=== PATIENT | female | born 1940 | race Caucasian/White ===

== ENCOUNTER 2016-09-13 14:05 | Inpatient (IN) | payer OTHER, MEDICARE ==
[~2016-09-13] VITALS: Ht 157.5 cm; Wt 73.4 kg
[~2016-09-13 14:05] MED LIST: APIX2.5T PO; ATOR40TA PO; BACT2OIN EACH NARE; CALC600T44 PO; CART180C4 PO; CO Q100C7 PO; EPIP0.3I IM; HYDR-2768 PO; HYDR50TA15 PO; LISI40TA PO; OXYB5TAB PO; POLY255S PO; PROT40TA PO; STOO100T PO; ULTR50TA PO; Z.0.CPM; Z.0.WALKERFRONT
[2016-09-13 14:20] VITALS: BP 134/73; PULSE 92; RESP 16; TEMP 99.7; O2SAT 96
[2016-09-13] MEDS ORDERED: PANT40TA3 PO (14:35)
[2016-09-13] MEDS ORDERED: NEXI20CA PO (14:35)
[2016-09-13] MEDS ORDERED: ASPI325T PO (14:35)
[2016-09-13] MEDS ORDERED: HYDR25TA5 PO (14:35)
[2016-09-13] MEDS ORDERED: HYDR-3801 PO (14:35)
[2016-09-13] MEDS ORDERED: DILT1TAB4 PO (14:35)
[2016-09-13] MEDS ORDERED: CALC1TAB30 PO (14:35)
[2016-09-13] MEDS ORDERED: ATOR40TA16 PO (14:35)
[2016-09-13] MEDS ORDERED: COQ-100C2 PO (14:35)
[2016-09-13] MEDS ORDERED: OXYB5TAB10 PO (14:35)
[2016-09-13] MEDS ORDERED: LISI40TA PO (14:35)
[2016-09-13] MEDS ORDERED: STOO100C PO (14:35)
[2016-09-13] MEDS ORDERED: SODIUM CHLOR 0.9% 1000 ML INJ 1,000 ML IV SCH ×2 (14:42→16:45)
[2016-09-13] MEDS ORDERED: ONDANSETRON HCL 4 MG/2 ML VIAL IVP ONE (14:45)
[2016-09-13] MEDS ORDERED: SODIUM CHLORIDE 0.9% FLUSH 5 ML FLUSH IVF PRN (14:45)
[2016-09-13 15:15] LABS: AUTOMATED NEUTROPHIL # 10.2 TH/MM3 (1.8-7.7); BASOPHIL # 0.1 TH/MM3 (0-0.2); EOSINOPHIL % 0.1 % (0.0-4.0); HEMATOCRIT 36.3 % (35.0-46.0); HEMO FLAGS DIFF FINAL; LYMPH % 7.8 % (9.0-44.0); LYMPHOCYTE # 0.9 TH/MM3 (1.0-4.8); MEAN CELL VOLUME 83.5 FL (80.0-100.0); MEAN CORPUSCULAR HEMOGLOBIN 28.5 PG (27.0-34.0); MEAN CORPUSCULAR HGB CONC 34.2 % (32.0-36.0); NEUT % 85.1 % (16.0-70.0); PLATELET COUNT 219 TH/MM3 (150-450); RED BLOOD COUNT 4.35 MIL/MM3 (4.00-5.30); RED CELL DISTRIBUTION WIDTH 13.8 % (11.6-17.2); WHITE BLOOD COUNT 11.9 TH/MM3 (4.0-11.0)
--- NOTE | 2016-09-13 15:23 | PD ---
HPI Chief Complaint: GI Complaint Time Seen by Provider: 14:33 Travel History International Travel<30 days: No Contact w/Intl Traveler<30days: No Traveled to known affect area: No History of Present Illness HPI This is a 76-year-old female who presents to the emergency department with left lower quadrant abdominal pain that started last evening associated with multiple copious episodes of diarrhea with blood mixed in this morning, and vomiting. She reports associated chills. She says her symptoms have been severe and she had an episode of fecal incontinence last evening which is not like her. She denies any recent travel or any recent antibiotic use. She does say that something similar happened this to her about 3 years ago. She did have a colonoscopy at that time which was unrevealing. She denies any sick contacts. PFSH Past Medical History Arthritis: Yes Asthma: No Autoimmune Disease: No Anxiety: No Depression: No Heart Rhythm Problems: Yes (Bradycardia) Cancer: No Cardiomyopathy: Yes (BRADYCARDIA) Cardiovascular Problems: Yes (PACEMAKER, DUAL BIOMETRICS (BIOTRONIC?)) High Cholesterol: Yes Chemotherapy: No Chest Pain: No Congestive Heart Failure: No COPD: No Cerebrovascular Accident: No Diabetes: No Diminished Hearing: No Endocrine: No Gastrointestinal Disorders: Yes (GIB) GERD: Yes Genitourinary: No Hepatitis: No Hiatal Hernia: No Hypertension: Yes Immune Disorder: No Kidney Stones: No Musculoskeletal: Yes Neurologic: No Psychiatric: No Reproductive: No Respiratory: No Migraines: No Radiation Therapy: No Seizures: No Sickle Cell Disease: No Sleep Apnea: No Thyroid Disease: No Ulcer: Yes Tetanus Vaccination: Unknown Influenza Vaccination: Yes ?: Not Menopausal: Yes Past Surgical History Abdominal Surgery: No AICD: No Appendectomy: Yes Body Medical Devices: BL hips and knees, pacemaker Cardiac Surgery: Yes (Pacemaker) Ear Surgery: No Endocrine Surgery: No Eye Surgery: No Genitourinary Surgery: No Gynecologic Surgery: Yes (TUMOR ON FALLOPIAN TUBE, BENIGN 1966; HYSTER A& P REPAIR) Hysterectomy: Yes Insulin Pump: No Joint Replacement: Yes (BL hips and knees) Oral Surgery: No Pacemaker: Yes (Biometric) Thoracic Surgery: No Social History Alcohol Use: Yes (Rarely) Tobacco Use: No Substance Use: No Allergies-Medications (Allergen,Severity, Reaction): Coded Allergies: Bee Sting (Verified Allergy, Severe, Lip/facial swelling, 09/13/16) Codeine (Verified Allergy, Severe, Rash, N/V, 09/13/16) Penicillin (Verified Allergy, Severe, Rash, 09/13/16) Percocet (Verified Allergy, Severe, N/V, 09/13/16) Sulfa (Verified Allergy, Severe, Swelling, 09/13/16) Vicodin (Unverified Allergy, Unknown, N/V, 09/13/16) Reported Meds & Prescriptions Reported Meds & Active Scripts Active Reported Stool Softener (Docusate Sodium) 100 Mg Cap 1 Cap PO HS Calcium 600 + D (Calcium Carbonate-Cholecalciferol) 600-200 Mg-Unit Tab 1 Tab PO DAILY Coq-10 (Coenzyme Q10 (Ubidecarenone)) 100 Mg Cap 1 Cap PO DAILY Nexium (Esomeprazole DR) 20 Mg Capdr 20 Mg PO DAILY Aspirin 325 Mg Tab 325 Mg PO DAILY Pantoprazole (Pantoprazole Sodium) 40 Mg Tab 40 Mg PO DAILY Atorvastatin (Atorvastatin Calcium) 40 Mg Tab 40 Mg PO HS Hydralazine (Hydralazine HCl) 100 Mg Tab 100 Mg PO TID Take with meals Lisinopril 40 Mg Tab 40 Mg PO BID Ditropan (Oxybutynin Chloride) 5 Mg Tab 5 Mg PO Q12HR Diltiazem ER 24 HR 240 Mg Yahaira 240 Mg PO DAILY Hydrochlorothiazide 25 Mg Tab 25 Mg PO DAILY Review of Systems Except as stated in HPI: all other systems reviewed are Neg Physical Exam Narrative GENERAL: Uncomfortable appearing, no acute distress SKIN: Dry with skin tenting HEAD: Atraumatic. Normocephalic. EYES: Pupils equal and round. No injection or drainage. ENT: Moist mucous membranes NECK: Trachea midline. CARDIOVASCULAR: Regular rate and rhythm. No murmur appreciated. RESPIRATORY: Clear to auscultation. Breath sounds equal bilaterally. GASTROINTESTINAL: Abdomen soft, tender to palpation in the left upper and left lower quadrants with no rebound or guarding. MUSCULOSKELETAL: No obvious deformities. NEUROLOGICAL: Awake and alert. No obvious cranial nerve deficits. Moving all extremities. PSYCHIATRIC: Appropriate mood and affect; insight and judgment normal. Data Data Last Documented VS Vital Signs Date Time Temp Pulse Resp B/P Pulse Ox O2 Delivery O2 Flow Rate FiO2 09/13/16 15:25 81 18 109/48 98 Room Air 09/13/16 14:20 99.7 Orders Complete Blood Count With Diff (09/13/16 14:42) Comprehensive Metabolic Panel (09/13/16 14:42) Lipase (09/13/16 14:42) Lactic Acid (09/13/16 14:42) Urinalysis - C+S If Indicated (09/13/16 14:42) Ct Abd/Pel W Iv Contrast(Rout) (09/13/16 14:42) Iv Access Insert/Monitor (09/13/16 14:42) Ecg Monitoring (09/13/16 14:42) Oximetry (09/13/16 14:42) Ondansetron Inj (Zofran Inj) (09/13/16 14:45) Sodium Chlor 0.9% 1000 Ml Inj (Ns 1000 M (09/13/16 14:42) Sodium Chloride 0.9% Flush (Ns Flush) (09/13/16 14:45) Labs Laboratory Tests Test 09/13/16 15:05 White Blood Count 11.9 TH/MM3 Red Blood Count 4.35 MIL/MM3 Hemoglobin 12.4 GM/DL Hematocrit 36.3 % Mean Corpuscular Volume 83.5 FL Mean Corpuscular Hemoglobin 28.5 PG Mean Corpuscular Hemoglobin 34.2 % Concent Red Cell Distribution Width 13.8 % Platelet Count 219 TH/MM3 Mean Platelet Volume 7.4 FL Neutrophils (%) (Auto) 85.1 % Lymphocytes (%) (Auto) 7.8 % Monocytes (%) (Auto) 6.0 % Eosinophils (%) (Auto) 0.1 % Basophils (%) (Auto) 1.0 % Neutrophils # (Auto) 10.2 TH/MM3 Lymphocytes # (Auto) 0.9 TH/MM3 Monocytes # (Auto) 0.7 TH/MM3 Eosinophils # (Auto) 0.0 TH/MM3 Basophils # (Auto) 0.1 TH/MM3 CBC Comment DIFF FINAL Differential Comment MDM Medical Decision Making Medical Screen Exam Complete: Yes Emergency Medical Condition: Yes Interpretation(s) Leukocytosis 85% neutrophils Differential Diagnosis Diverticulitis, colitis, gastroenteritis, appendicitis Narrative Course This is a 76-year-old female who presents to the emergency department with left lower quadrant abdominal pain, bloody diarrhea and vomiting. She is quite tender in the left abdomen. Plan for labs, IV fluids, pain control and antiemetics and CT imaging to rule out diverticulitis. I suspect the patient has a colitis. Patient should be reassessed for disposition Samira Gonzalez MD Sep 13, 2016 15:23
[2016-09-13 15:25] VITALS: BP 109/48; PULSE 81; RESP 18; O2SAT 98
[2016-09-13 15:27] LABS: CHLORIDE 108 MEQ/L (98-107); POTASSIUM 4.5 MEQ/L (3.5-5.1); SODIUM (NA) 141 MEQ/L (136-145)
[2016-09-13 15:32] LABS: ANION GAP 8 MEQ/L (5-15); BLOOD UREA NITROGEN 33 MG/DL (7-18)
[2016-09-13 15:35] LABS: ALT (GPT) 20 U/L (10-53); AST (GOT) 20 U/L (15-37); GLOMERULAR FILTRATION RATE 37 ML/MIN (>89)
[2016-09-13 15:36] LABS: TOTAL BILIRUBIN ADULT 0.8 MG/DL (0.2-1.0)
[2016-09-13 15:38] LABS: ALKALINE PHOSPHATASE 115 U/L (45-117)
[2016-09-13] MEDS ORDERED: IODIXANOL 320 MG/ML 10 ML VIAL (for Rad CT) IV ONE (15:53)
--- NOTE | 2016-09-13 16:10 | RADHPO ---
EXAM DATE/TIME: 09/13/2016 15:47 [facility] COMPARISON: CT ABDOMEN & PELVIS W CONTRAST, July 04, 2013, 7:41. INDICATIONS : Left lower abdomen pain since last night with nausea, vomiting and diarrhea. IV CONTRAST: 47 cc Visipaque (iodixanol) IV ORAL CONTRAST: No oral contrast ingested. RADIATION DOSE: 10.05 CTDIvol (mGy) MEDICAL HISTORY : Hypertension. renal disease SURGICAL HISTORY : Pacemaker. Hysterectomy.Angioplasty. ENCOUNTER: Initial ACUITY: 1 day PAIN SCALE: 5/10 LOCATION: Left lower quadrant TECHNIQUE: Volumetric scanning of the abdomen and pelvis was performed. Using automated exposure control and ad justment of the mA and/or kV according to patient size, radiation dose was kept as low as reasonably achievable to obtain optimal diagnostic quality images. FINDINGS: There is a large hiatal hernia. Liver, gallbladder, spleen, pancreas, bilateral adrenal glands, bilat eral kidneys are normal in appearance there is atherosclerotic calcifications of the aorta and iliac vessels are noted. Small fat containing umbilical hernia. Urinary bladder is partially obscured by ar tifact from bilateral hip arthroplasties but visualized portions are within normal limits. There is d iverticulosis of the sigmoid colon. There is a small amount of free fluid in the pelvis. There is mar ked circumferential bowel wall thickening involving the distal sigmoid colon through the distal trans verse colon with adjacent pericolonic inflammatory stranding and trace pericolonic fluid. This is dana racteristic of a colitis. The celiac, superior mesenteric and inferior mesenteric arteries are patent . Lung bases are clear. Degenerative changes of the spine are noted. CONCLUSION: 1. Abnormal appearance of the large bowel from the distal transverse colon to the distal sigmoid colo n as described above. A small amount of a coming free fluid is seen. This is characteristic of coliti s. 2. Small fat-containing umbilical hernia and hiatal hernias are noted. Jason Betts MD on September 13, 2016 at 16:06 Board Certified Radiologist. This report was verified electronically.
--- NOTE | 2016-09-13 16:26 | PD ---
Physical Exam Narrative Patient was seen by ED physician and signed out to me. Data Data Last Documented VS Vital Signs Date Time Temp Pulse Resp B/P Pulse Ox O2 Delivery O2 Flow Rate FiO2 09/13/16 16:45 85 18 109/48 97 Room Air 09/13/16 14:20 99.7 Orders Complete Blood Count With Diff (09/13/16 14:42) Comprehensive Metabolic Panel (09/13/16 14:42) Lipase (09/13/16 14:42) Lactic Acid (09/13/16 14:42) Urinalysis - C+S If Indicated (09/13/16 14:42) Ct Abd/Pel W Iv Contrast(Rout) (09/13/16 14:42) Iv Access Insert/Monitor (09/13/16 14:42) Ecg Monitoring (09/13/16 14:42) Oximetry (09/13/16 14:42) Ondansetron Inj (Zofran Inj) (09/13/16 14:45) Sodium Chlor 0.9% 1000 Ml Inj (Ns 1000 M (09/13/16 14:42) Sodium Chloride 0.9% Flush (Ns Flush) (09/13/16 14:45) Iodixanol 320 Inj (Rad Ct) (Visipaque 32 (09/13/16 15:53) Hydromorphone Pf Inj (Dilaudid Pf Inj) (09/13/16 16:45) Sodium Chlor 0.9% 1000 Ml Inj (Ns 1000 M (09/13/16 16:45) Pantoprazole Inj (Protonix Inj) (09/13/16 16:45) Levofloxacin 500 Mg Premix Inj (Levaquin (09/13/16 16:45) Admit Order (Ed Use Only) (09/13/16 16:35) Metronidazole 500 Mg Inj (Flagyl 500 Mg (09/13/16 18:00) Ciprofloxacin 200 Mg Premix (Cipro 200 M (09/14/16 05:00) Admit To Inpatient (09/13/16 ) Vital Signs (Adult) Q4H (09/13/16 16:33) Activity Oob Ad Hazel (09/13/16 16:33) Intake + Output ROSA M.QSHIFT (09/13/16 16:33) Diet Heart Healthy (09/13/16 Dinner) Sodium Chlor 0.9% 1000 Ml Inj (Ns 1000 M (09/13/16 16:33) Sodium Chloride 0.9% Flush (Ns Flush) (09/13/16 16:45) Sodium Chloride 0.9% Flush (Ns Flush) (09/13/16 21:00) Acetaminophen (Tylenol) (09/13/16 16:45) Basic Metabolic Panel (Bmp) (09/14/16 06:00) Complete Blood Count With Diff (09/14/16 06:00) Pt Request For Service (09/13/16 16:33) Scd Bilateral/Knee High ROSA M.BID (09/13/16 16:33) Naloxone Inj (Narcan Inj) (09/13/16 16:45) Inpatient Certification (09/13/16 ) C Diff Toxin Pcr (09/13/16 16:33) Ondansetron Inj (Zofran Inj) (09/13/16 16:45) Atorvastatin (Lipitor) (09/13/16 21:00) Pantoprazole (Protonix) (09/14/16 09:00) Consult Gastroenterology (09/13/16 ) Labs Laboratory Tests Test 09/13/16 15:05 White Blood Count 11.9 TH/MM3 Red Blood Count 4.35 MIL/MM3 Hemoglobin 12.4 GM/DL Hematocrit 36.3 % Mean Corpuscular Volume 83.5 FL Mean Corpuscular Hemoglobin 28.5 PG Mean Corpuscular Hemoglobin 34.2 % Concent Red Cell Distribution Width 13.8 % Platelet Count 219 TH/MM3 Mean Platelet Volume 7.4 FL Neutrophils (%) (Auto) 85.1 % Lymphocytes (%) (Auto) 7.8 % Monocytes (%) (Auto) 6.0 % Eosinophils (%) (Auto) 0.1 % Basophils (%) (Auto) 1.0 % Neutrophils # (Auto) 10.2 TH/MM3 Lymphocytes # (Auto) 0.9 TH/MM3 Monocytes # (Auto) 0.7 TH/MM3 Eosinophils # (Auto) 0.0 TH/MM3 Basophils # (Auto) 0.1 TH/MM3 CBC Comment DIFF FINAL Differential Comment Sodium Level 141 MEQ/L Potassium Level 4.5 MEQ/L Chloride Level 108 MEQ/L Carbon Dioxide Level 25.0 MEQ/L Anion Gap 8 MEQ/L Blood Urea Nitrogen 33 MG/DL Creatinine 1.40 MG/DL Estimat Glomerular Filtration 37 ML/MIN Rate Random Glucose 106 MG/DL Lactic Acid Level 0.9 mmol/L Calcium Level 8.7 MG/DL Total Bilirubin 0.8 MG/DL Aspartate Amino Transf 20 U/L (AST/SGOT) Alanine Aminotransferase 20 U/L (ALT/SGPT) Alkaline Phosphatase 115 U/L Total Protein 6.4 GM/DL Albumin 3.1 GM/DL Lipase 86 U/L [facility] Supervised Visit with KEI: No Interpretation(s) Last Impressions Abdomen/Pelvis CT 09/13/16 1442 Signed Impressions: Service Date/Time: Tuesday, September 13, 2016 15:47 - CONCLUSION: 1. Abnormal appearance of the large bowel from the distal transverse colon to the distal sigmoid colon as described above. A small amount of a coming free fluid is seen. This is characteristic of colitis. 2. Small fat-containing umbilical hernia and hiatal hernias are noted. Jason Betts MD 1623 PM. CBC WBC 11.9. 85 neutrophil. CMP with BUN 33. Creatinine 1.4. Lactic acid 0.9. Narrative Course Patient was given IV fluid, normal saline solution, Protonix 40 mg IV, Dilaudid 0.5 mg IV, Zofran 4 mg IV, Levaquin 500 milligrams IV. Spoke with Dr. Romero. Patient will be admitted with GI consultation. Patient's house furnishings supervisor is Dr. Magana. Spoke with shayne Rivas or [place]. Diagnosis Primary Impression: Colitis Additional Impression: Acute kidney injury Mehran Gilbert MD Sep 13, 2016 16:26
[2016-09-13 16:45] VITALS: BP 109/48; PULSE 85; RESP 18; O2SAT 97
[2016-09-13] MEDS ORDERED: SODIUM CHLORIDE 0.9% FLUSH 5 ML FLUSH FLUSH PRN (16:45)
[2016-09-13] MEDS ORDERED: NALOXONE HCL 0.4 MG/ML AMP IV PRN (16:45)
[2016-09-13] MEDS ORDERED: LEVOFLOXACIN 500 MG PREMIX INJ 100 ML IV ONE (16:45)
[2016-09-13] MEDS ORDERED: ACETAMINOPHEN 325 MG TAB PO PRN (16:45)
[2016-09-13] MEDS ORDERED: PANTOPRAZOLE SODIUM 40 MG VIAL IV PUSH ONE (16:45)
[2016-09-13] MEDS ORDERED: HYDROmorphone HCL PF 1 MG/ML VIAL IV PUSH ONE (16:45)
[2016-09-13] MEDS: SODIUM CHLOR 0.9% 1000 ML INJ 1,000 ML IV SCH (16:46)
[2016-09-13 18:00] VITALS: BP 121/58; PULSE 81; RESP 20; TEMP 98.2; O2SAT 95
[2016-09-13] MEDS: metroNIDAZOLE 500 MG INJ 100 ML IV SCH (20:05)
[2016-09-13] MEDS: SODIUM CHLORIDE 0.9% FLUSH 5 ML FLUSH FLUSH SCH (21:08)
[2016-09-13] MEDS: ATORVASTATIN 40 MG TAB PO SCH (21:08)
[2016-09-13 21:26] VITALS: BP 119/53; PULSE 78; RESP 18; TEMP 99.1; O2SAT 98
[2016-09-13 21:38] LABS: BLOOD, URINE NEG (NEG); GLUCOSE,URINE NEG (NEG); KETONE, URINE NEG (NEG); NITRITE,URINE NEG (NEG); PH, URINE 5.5 (5.0-8.5)
[2016-09-13 22:01] LABS: METHOD OF COLLECTION VOIDED; URINE COLOR YELLOW (YELLW/STRAW)
[2016-09-13 22:03] LABS: COMMENT (UR) CULT NOT INDICATED; CULTURE IF INDICATED CULT NOT INDICATED; SQUAMOUS EPITHELIAL CELL URINE 0-3 /hpf (0-5); TRANSITIONAL EPI CELLS, URINE 0-2 /hpf
[2016-09-13] MEDS: ONDANSETRON HCL 4 MG/2 ML VIAL IV PUSH PRN (23:12)
[2016-09-13] MEDS: HYDROmorphone HCL PF 1 MG/ML VIAL IV PUSH PRN (23:15)
[2016-09-14] VITALS (9 sets, daily range): BP systolic 96–134; BP diastolic 52–71; PULSE 63–88; RESP 15–20; TEMP 98–98.9; O2SAT 95–98
[2016-09-14] MEDS: metroNIDAZOLE 500 MG INJ 100 ML IV SCH ×3 (02:36→17:48)
[2016-09-14] MEDS: SODIUM CHLOR 0.9% 1000 ML INJ 1,000 ML IV SCH ×3 (02:37→23:02)
[2016-09-14] MEDS: ONDANSETRON HCL 4 MG/2 ML VIAL IV PUSH PRN ×3 (05:14→17:48)
[2016-09-14] MEDS: HYDROmorphone HCL PF 1 MG/ML VIAL IV PUSH PRN ×3 (05:15→17:48)
[2016-09-14] MEDS: CIPROFLOXACIN 200 MG PREMIX 100 ML IV SCH ×2 (05:15→17:48)
[2016-09-14 07:11] LABS: AUTOMATED NEUTROPHIL # 7.8 TH/MM3 (1.8-7.7); BASOPHIL % 0.1 % (0.0-2.0); EOSINOPHIL # 0.1 TH/MM3 (0-0.4); EOSINOPHIL % 0.9 % (0.0-4.0); LYMPH % 11.1 % (9.0-44.0); LYMPHOCYTE # 1.1 TH/MM3 (1.0-4.8); MEAN CELL VOLUME 86.3 FL (80.0-100.0); MEAN CORPUSCULAR HEMOGLOBIN 28.6 PG (27.0-34.0); MEAN CORPUSCULAR HGB CONC 33.1 % (32.0-36.0); MONO % 4.9 % (0.0-8.0); PLATELET COUNT 163 TH/MM3 (150-450); RED BLOOD COUNT 3.48 MIL/MM3 (4.00-5.30); RED CELL DISTRIBUTION WIDTH 14.6 % (11.6-17.2); WHITE BLOOD COUNT 9.5 TH/MM3 (4.0-11.0)
[2016-09-14 07:14] LABS: HEMO FLAGS AUTO DIFF
[2016-09-14 07:24] LABS: POTASSIUM 3.9 MEQ/L (3.5-5.1)
[2016-09-14 07:42] LABS: SCAN/DIFF AUTO DIFF CONFIRMED
[2016-09-14 07:44] LABS: BICARBONATE 24.9 MEQ/L (21.0-32.0)
[2016-09-14] MEDS: SODIUM CHLORIDE 0.9% FLUSH 5 ML FLUSH FLUSH SCH ×2 (09:00→21:30)
[2016-09-14] MEDS: PANTOPRAZOLE SOD 40 MG DELAYED RELEASE TAB PO SCH (09:08)
--- NOTE | 2016-09-14 10:08 | HHI.HP ---
[facility] Service [facility] Primary Care Physician Ariel Barrientos M.D. Admission Diagnosis colitis. Acute kidney injury. Diagnoses: (1) Colitis Diagnosis: Principal (2) Nausea & vomiting Diagnosis: Principal (3) Diarrhea in adult patient Diagnosis: Principal (4) Acute blood loss anemia Diagnosis: Principal (5) Acute kidney injury Diagnosis: Principal (6) Hypertension Diagnosis: Secondary Chief Complaint: Nausea, vomiting, diarrhea with bright red blood Travel History International Travel<30 Days: No Contact w/Intl Traveler <30 Da: No Traveled to Known Affected Are: No History of Present Illness 76-year-old female with known history of hypertension, bradycardia requiring pacemaker, gastroesophageal reflux, history of inflammatory bowel disease who presented to the hospital because acute onset nausea, vomiting, diarrhea with bright red blood per rectum. Patient states that she is in normal state of health until Thursday at approximately 6:30 PM when she started developing nausea and vomiting. Shortly after that she started having diarrhea at least 2 episodes prior to noticing bright red blood in her stool. Patient has significant abdominal pain, unable to tolerate any food, still with hematochezia so she came to the hospital for evaluation. Patient had laboratory studies done which did indicate some acute kidney injury. CT scan was done which have rather significant findings of marked circumferential bowel wall thickening involving the distal sigmoid colon to the distal transverse colon with adjacent pericolonic inflammatory stranding and trace pericolonic fluid. Those reasons is recommended by the ER physician that the patient be admitted the hospital for further evaluation management. Patient states that prior to her symptoms starting she had tomato juice for breakfast, salad for lunch. She noticed some swelling in her lower extremities whenever golfing that day. She denies any recent sick exposures or any recent antibiotic use. Dr. Magana is her material handler loader who performed upper and lower endoscopies approximately 3 years ago. She is scheduled to have upper endoscopy performed in the next 10 days. Review of Systems Constitutional: DENIES: Diaphoretic episodes, Fatigue, Fever, Weight gain, Weight loss, Chills, Dizziness, Change in appetite, Night Sweats Eyes: DENIES: Blurred vision, Diplopia, Eye inflammation, Eye pain, Vision loss , Double Vision Ears, nose, mouth, throat: DENIES: Vertigo, Nasal discharge, Throat pain, Ear Pain, Running Nose, Sinus Pain Respiratory: DENIES: Apneas, Cough, Snoring, Wheezing, Hemoptysis, Sputum production, Shortness of breath Cardiovascular: DENIES: Chest pain, Palpitations, Syncope, Dyspnea on Exertion , PND, Lower Extremity Edema, Orthopnea, Claudication Gastrointestinal: COMPLAINS OF: Abdominal pain, Bloody stools, Nausea, Vomiting , DENIES: Black stools, Constipation, Diarrhea, Difficulty Swallowing, Anorexia Neurologic: DENIES: Abnormal gait, Headache, Localized weakness, Paresthesias, Seizures, Speech Problems, Tremor, Poor Balance Past Family Social History Past Medical History Hypertension Bradycardia requiring pacemaker Inflammatory bowel disorder Past Surgical History Cataract surgery Tonsillectomy Appendectomy Bladder surgery Hysterectomy Bilateral knee replacements Left hip replacement 2 Right hip replacement Reported Medications Reported Meds & Active Scripts Active Reported Stool Softener (Docusate Sodium) 100 Mg Cap 1 Cap PO HS Calcium 600 + D (Calcium Carbonate-Cholecalciferol) 600-200 Mg-Unit Tab 1 Tab PO DAILY Coq-10 (Coenzyme Q10 (Ubidecarenone)) 100 Mg Cap 1 Cap PO DAILY Nexium (Esomeprazole DR) 20 Mg Capdr 20 Mg PO DAILY Aspirin 325 Mg Tab 325 Mg PO DAILY Pantoprazole (Pantoprazole Sodium) 40 Mg Tab 40 Mg PO DAILY Atorvastatin (Atorvastatin Calcium) 40 Mg Tab 40 Mg PO HS Hydralazine (Hydralazine HCl) 100 Mg Tab 100 Mg PO TID Take with meals Lisinopril 40 Mg Tab 40 Mg PO BID Ditropan (Oxybutynin Chloride) 5 Mg Tab 5 Mg PO Q12HR Diltiazem ER 24 HR 240 Mg Yahaira 240 Mg PO DAILY Hydrochlorothiazide 25 Mg Tab 25 Mg PO DAILY Allergies: Coded Allergies: Bee Sting (Verified Allergy, Severe, Lip/facial swelling, 09/13/16) Codeine (Verified Allergy, Severe, Rash, N/V, 09/13/16) Penicillin (Verified Allergy, Severe, Rash, 09/13/16) Percocet (Verified Allergy, Severe, N/V, 09/13/16) Sulfa (Verified Allergy, Severe, Swelling, 09/13/16) Vicodin (Unverified Allergy, Unknown, N/V, 09/13/16) Family History Reviewed is significant for father having heart disease and prostate cancer. Mother with breast cancer, brother with throat cancer Social History Patient denies any tobacco, illicit drug use. She does drink alcohol socially Physical Exam Vital Signs Vital Signs Date Time Temp Pulse Resp B/P Pulse Ox O2 Delivery O2 Flow Rate FiO2 09/14/16 09:21 98.2 70 16 120/65 97 09/14/16 04:00 98.0 63 18 96/57 98 09/14/16 02:32 80 09/14/16 00:27 98.9 74 16 104/52 95 09/13/16 21:26 99.1 78 18 119/53 98 09/13/16 18:00 98.2 81 20 121/58 95 09/13/16 17:15 16 09/13/16 16:45 85 18 109/48 97 Room Air 09/13/16 15:25 81 18 109/48 98 Room Air 09/13/16 15:25 98 Room Air 09/13/16 14:20 99.7 92 16 134/73 96 Physical Exam GENERAL: Well-developed, well-nourished, in no acute distress. alert and orientated HEENT: Head is normocephalic without any lesions or masses noted. Facial features are symmetric. Eyes: Pupils equal round reactive to light. Extraocular muscles are intact. Conjunctivae were clear. Oropharyngeal: Pharynx without any erythema edema. Tongue is midline without deviation. Buccal mucosa is moist without any masses or lesions NECK: Supple without any masses. Trachea midline no deviation. No JVD, no bruits are appreciated CARDIAC: Regular rhythm, regular rate. S1/S2 are heard. No murmurs gallops or rubs. LUNGS: Clear to auscultation bilaterally. No wheeze, rhonchi or rales. No use of accessory muscles on inspiration or expiration. ABDOMEN: Soft, diffuse abdominal pain noted. Nondistended. Bowel sounds heard in all 4 quadrants. No organomegaly or masses. Negative rebound, negative guarding EXTREMITIES: No edema, pulses are equal bilaterally. No cyanosis or clubbing NEUROLOGY: Mood and affect appear appropriate. Cranial nerves II through XII grossly intact. Muscle strength 5/5 in upper and lower extremities bilaterally. Deep tendon reflexes are 2+ in upper and lower extremities bilaterally. Laboratory Laboratory Tests Test 09/13/16 09/13/1617 15:05 21:15 06:45 White Blood Count 11.9 9.5 Red Blood Count 4.35 3.48 Hemoglobin 12.4 9.9 Hematocrit 36.3 30.0 Mean Corpuscular Volume 83.5 86.3 Mean Corpuscular Hemoglobin 28.5 28.6 Mean Corpuscular Hemoglobin 34.2 33.1 Concent Red Cell Distribution Width 13.8 14.6 Platelet Count 219 163 Mean Platelet Volume 7.4 7.4 Neutrophils (%) (Auto) 85.1 83.0 Lymphocytes (%) (Auto) 7.8 11.1 Monocytes (%) (Auto) 6.0 4.9 Eosinophils (%) (Auto) 0.1 0.9 Basophils (%) (Auto) 1.0 0.1 Neutrophils # (Auto) 10.2 7.8 Lymphocytes # (Auto) 0.9 1.1 Monocytes # (Auto) 0.7 0.5 Eosinophils # (Auto) 0.0 0.1 Basophils # (Auto) 0.1 0.0 CBC Comment DIFF FINAL AUTO DIFF Differential Comment AUTO DIFF CONFIRMED Sodium Level 141 143 Potassium Level 4.5 3.9 Chloride Level 108 110 Carbon Dioxide Level 25.0 24.9 Anion Gap 8 8 Blood Urea Nitrogen 33 22 Creatinine 1.40 0.97 Estimat Glomerular Filtration 37 56 Rate Random Glucose 106 93 Lactic Acid Level 0.9 Calcium Level 8.7 7.8 Total Bilirubin 0.8 Aspartate Amino Transf 20 (AST/SGOT) Alanine Aminotransferase 20 (ALT/SGPT) Alkaline Phosphatase 115 Total Protein 6.4 Albumin 3.1 Lipase 86 Urine Collection Type VOIDED Urine Color YELLOW Urine Turbidity CLEAR Urine pH 5.5 Urine Specific [place] 1.030 Urine Protein NEG Urine Glucose (UA) NEG Urine Ketones NEG Urine Occult Blood NEG Urine Nitrite NEG Urine Bilirubin NEG Urine Leukocyte Esterase TRACE Urine WBC 3-5 Urine Squamous Epithelial 0-3 Cells Urine Transitional Epithelial 0-2 Cells Microscopic Urinalysis Comment CULT NOT INDICATED Result Diagram: 09/14/16 0645 09/14/16 0645 Imaging Last Impressions Abdomen/Pelvis CT 09/13/16 1442 Signed Impressions: Service Date/Time: Tuesday, September 13, 2016 15:47 - CONCLUSION: 1. Abnormal appearance of the large bowel from the distal transverse colon to the distal sigmoid colon as described above. A small amount of a coming free fluid is seen. This is characteristic of colitis. 2. Small fat-containing umbilical hernia and hiatal hernias are noted. Jason Betts MD Assessment and Plan Assessment and Plan Acute colitis with associated nausea, vomiting, diarrhea with hematochezia: CT scan does show significant findings indicative of colitis. Patient started on Cipro IV, Flagyl IV. C. difficile culture has been requested. Patient is tolerating healthy heart diet this time without any recurrent nausea and vomiting. Dilaudid for pain control. Zofran for nausea vomiting Acute blood loss anemia from hematochezia: Hemoglobin has dropped 2.5 g since admission could be dilutional versus continued GI bleed. Will continue follow hemoglobin/hematocrit. Transfuse if hemoglobin below 8.0. Patient is on Protonix Acute kidney injury: Secondary to dehydration, nausea, vomiting, diarrhea. Renal functions are improving this time, continue IV fluids and monitor renal function Hypertension: Blood pressure still low at this time, will continue monitor blood pressure resume home medications when blood pressure can support medication. DVT prevention: Sequential compression devices, avoid chemical prophylaxis secondary to GI bleed Written by Darnell Madsen PA-C, acting as scribe for Dr. Romero on 09/14/16 at 1235. The documentation accurately reflects the work and decisions performed face-to- face by Dr. Romero on 09/14/16 at 1235. Physician Certification 2 Midnight Certification Type: Admission for Inpatient Services Order for Inpatient Services The services are ordered in accordance with Medicare regulations or non- Medicare payer requirements, as applicable. In the case of services not specified as inpatient-only, they are appropriately provided as inpatient services in accordance with the 2-midnight benchmark. Estimated LOS (days): 3 days is the estimated time the patient will need to remain in the hospital, assuming treatment plan goals are met and no additional complications. Post-Hospital Plan: Not yet determined Problem Qualifiers (1) Hypertension: Qualified Code: I15.9 - Secondary hypertension Darnell Madsne Sep 14, 2016 10:08
--- NOTE | 2016-09-14 10:24 | PD.CONS ---
GI Consult GI Consult SEE FORMAL GI CONSULT DICTATED TODAY ALSO ([id number]) ASSESSMENT/PLAN: 1. Bloody diarrhea-inf vs ischemia 2. N/V 3. abd pain 4. Dysphagia/Gerd PLAN: 1. IV fluids and antibiotics 2. awaiting stool path 3. Clear liquid diet 4. no urgent need for any EGD/Colon as an inpt It was a pleasure seeing Guillermina Burger . Thank you for this consult. Entered by: Roshan Lang MD Sep 14, 2016 10:24
--- NOTE | 2016-09-14 13:16 | MB ---
cc: GARRY ROBERTSON M.D.,TAO TOUSSAINT DATE OF CONSULTATION: 09/14/2016 REASON FOR CONSULTATION I was asked to see the patient by Tao Madsen for evaluation of bloody diarrhea, nausea and vomiting. HISTORY OF PRESENT ILLNESS The patient is a pleasant 76-year-old white female who has been followed by Dr. Magana in the office. Dr. Magana recently saw her for dysphagia last week and scheduled for upper endoscopy later this month.. Apparently, the patient about 3 years ago had presented to the hospital with multiple bloody stools and a CAT scan shows ischemia in the splenic flexure and descending colon, possibly ischemic colitis. The patient was seen by Dr. Magana and he planned to do a colonoscopy but due to insurance reasons it was done by colorectal surgery. According to the patient at that time colonoscopy revealed what she believes is diverticulosis with polyps. She is not quite sure if there is any ischemic colitis or not - she does not recall. Nevertheless, she did quite well. Yesterday afternoon the patient and her had tomato soup and a salad. The salad did have ham on it. Her did not get sick, however, about 4 hours later the patient had multiple episodes of nausea and vomiting - without blood. Then she had she believes one episode of watery stools, then became bloody. She actually had an accident her had to clean it up. She came to the emergency room at [facility]. In the hospital the nausea, vomiting has subsided. She did try eating a regular diet this morning and felt uncomfortable with some left lower quadrant pain. She had not had a bowel movement in the hospital. The patient says that heartburn and dysphagia are stable at this time. No melena. No recent travel, history of antibiotic use. No fever or chills. No weight loss. A CAT scan did show colitis - see below for details. ALLERGIES Multiple including: BEE STINGS, CODEINE, PENICILLIN, PERCOCET, SULFA, VICODIN. PAST MEDICAL HISTORY 1. Hypertension. 2. Pacemaker/bradycardia. 3. Possible ischemic colitis in the past. 4. Colon polyp. 5. Diverticulosis. 6. She also has recent gastroesophageal reflux disease and dysphagia. 7. Past history of constipation. 8. Recent nausea, vomiting, abdominal pain predominantly in the left lower quadrant. 9. History of gastric ulcer. 10. Dyslipidemia. PAST SURGICAL HISTORY 1. Appendectomy. 2. Bladder surgery. 3. Hysterectomy. 4. Bilateral knee replacement. 5. Left hip replacement x2. 6. Right hip replacement x1. 7. Cataract surgery. 8. Tonsillectomy. REVIEW OF SYSTEMS No weight loss, fevers or chills. CARDIOPULMONARY: No chest pain, palpitation, wheezes or shortness of breath. GASTROINTESTINAL: Please see above. MEDICATION Outpatient are: Stool softener. Calcium. Nexium. Co-Enzyme Q. Aspirin. Pantoprazole. Atorvastatin. Hydralazine. Lisinopril. Diprivan. Diltiazem. Hydrochlorothiazide. FAMILY HISTORY Not significant for any colon cancer, colon polyps or IBD. SOCIAL HISTORY Does not currently smoke. She does drink alcohol occasionally. MEDICATIONS In the hospital include: 1. Pantoprazole. 2. Cipro. 3. Tramadol. 4. Dilaudid. 5. Lipitor. 6. Metronidazole. 7. Narcan. 8. Zofran. PHYSICAL EXAMINATION VITAL SIGNS: Blood pressure is 120/65, pulse of 70, respiratory rate 16, temperature max is 99.7. GENERAL: The patient is an elderly white female, resting comfortably at this time. No acute GI distress. HEENT: Her pupils are equal, round, reactive to light. No obvious scleral icterus. Oropharynx dental caries. No tongue deviation or candidal lesions. Hearing was intact. NECK: The neck is supple. No thyromegaly or lymphadenopathy. LUNGS: Clear to auscultation and percussion. HEART: Regular rhythm. No gross murmurs heard. ABDOMEN: Abdomen is soft, had mild diffuse tenderness throughout but it is more significant in left lower quadrant but no rebound tenderness, organomegaly or masses. Her bowel sounds positive in all quadrants. EXTREMITIES: No cyanosis, clubbing or edema. NEURO: Cranial nerves are grossly intact. No gross sensory deficits. RECTAL: I did not do a rectal exam on her. GAIT: I did not assess her gait. DATABASE Her white blood cell count was 11,900 yesterday, hemoglobin 12.4. Today her white blood cell count is normal at 9500. Hemoglobin dropped to 9.9, hematocrit of 30. MCV is 86.3, platelet count of 163,000. Chemistry revealed a BUN of 33, yesterday creatinine 1.40. Today BUN is 22, creatinine 0.97. Lactic acid 0.9, was normal. The total bilirubin is 0.8, SGOT 20, SGPT of 20, alk phos is normal at 115, lipase of 86 is normal, albumin is slight low at 3.1, total protein 6.4 which is normal. Potassium of 3.9, sodium 143. A CT scan of the abdomen and pelvis done which revealed abnormal appearance of the colon from the distal transverse colon to the distal sigmoid colon. There is small amount of free fluid seen. There is a small sac containing umbilical hernia and hiatal hernia is noted also. There is diverticulosis seen. The bowel is marked circumferential bowel wall thickening. Of note, celiac, superior mesenteric, inferior mesenteric arteries are patent. IMPRESSION 1. Bloody diarrhea - this occurred around 4 hours after eating a salad with ham. She understands this could well be infectious process. However, the distribution is also characteristic of ischemic colitis and she may have ischemic colitis in the past. Nevertheless, she is improved in the sense that the bleeding has stopped and has not had a bowel movement this morning. She has been started on antibiotics, both Cipro and Flagyl. 2. Nausea and vomiting - please see above. This is better at this time. This could be a food borne process, possibly even reacting to the ischemia. There is no blood in the vomitus. The patient with severe abdominal pain, it is diffuse but more significant in the left lower quadrant, this is more likely related to the above process. 3. Dysphagia and gastroesophageal reflux disease - Dr. Magana saw her as outpatient in this regard. It is stable at this time. RECOMMENDATIONS 1. Continue IV fluids and antibiotics. 2. Await stool pathology. 3. The patient had a regular diet this morning and felt uncomfortable eating. Cutback clear liquid diet. 4. No need for urgent upper endoscopy or colonoscopy at present. But she understands she probably will have to have this done as an outpatient. 5. Further recommendations as the stool samples come back. MD TERESA Hayes/FRANSICO /11:08 AM /12:13 PM REINA
[2016-09-14 13:41] LABS: HEMATOCRIT 29.9 % (35.0-46.0)
[2016-09-14 13:45] LABS: REVIEW FLAG FINAL
[2016-09-14] MEDS: ATORVASTATIN 40 MG TAB PO SCH (21:30)
[2016-09-15] VITALS: BP 134/58; PULSE 74; RESP 20; TEMP 98.7; O2SAT 98
[2016-09-15] MEDS: metroNIDAZOLE 500 MG INJ 100 ML IV SCH ×3 (02:44→20:30)
[2016-09-15 04:00] VITALS: BP 134/72; PULSE 65; RESP 20; TEMP 97.9; O2SAT 98
[2016-09-15] MEDS: CIPROFLOXACIN 200 MG PREMIX 100 ML IV SCH ×2 (05:13→20:30)
[2016-09-15 06:51] LABS: AUTOMATED NEUTROPHIL # 5.3 TH/MM3 (1.8-7.7); BASOPHIL % 0.2 % (0.0-2.0); EOSINOPHIL # 0.1 TH/MM3 (0-0.4); EOSINOPHIL % 1.9 % (0.0-4.0); HEMATOCRIT 29.8 % (35.0-46.0); HEMO FLAGS DIFF FINAL; LYMPH % 14.9 % (9.0-44.0); MEAN CELL VOLUME 85.2 FL (80.0-100.0); MEAN CORPUSCULAR HEMOGLOBIN 28.3 PG (27.0-34.0); MEAN CORPUSCULAR HGB CONC 33.2 % (32.0-36.0); MONO % 5.4 % (0.0-8.0); NEUT % 77.6 % (16.0-70.0); PLATELET COUNT 167 TH/MM3 (150-450); RED CELL DISTRIBUTION WIDTH 13.8 % (11.6-17.2); WHITE BLOOD COUNT 6.8 TH/MM3 (4.0-11.0)
[2016-09-15 06:59] LABS: POTASSIUM 3.7 MEQ/L (3.5-5.1)
[2016-09-15 07:04] LABS: BICARBONATE 24.6 MEQ/L (21.0-32.0); MAGNESIUM 1.6 MG/DL (1.5-2.5)
[2016-09-15 08:00] VITALS: BP 135/65; PULSE 65; RESP 20; TEMP 98.1; O2SAT 96
[2016-09-15] MEDS: SODIUM CHLORIDE 0.9% FLUSH 5 ML FLUSH FLUSH SCH ×2 (08:49→20:31)
[2016-09-15] MEDS: SODIUM CHLOR 0.9% 1000 ML INJ 1,000 ML IV SCH (08:50)
[2016-09-15] MEDS: PANTOPRAZOLE SOD 40 MG DELAYED RELEASE TAB PO SCH (08:50)
--- NOTE | 2016-09-15 09:17 | HHI.GIFU ---
GI Follow-up Note Consult Follow-up Subjective: Patient laying in bed comfortably but she still has diffuse abd pain. No BM's or bleeding. passing gas. +nausea---no vomiting Objective: PHYSICAL EXAMINATION: Vitals signs stable No fever CHEST: Chest is clear to auscultation and percussion. CARDIAC: Regular rate and rhythm with no murmur gallop or rubs. ABDOMEN: Soft, mild diffuse tenderness. no rebound. non-distended; no hepatosplenomegaly; bowel sounds are present in all four quadrants. EXTREMITIES: No clubbing, cyanosis, or edema. SKIN: Normal; no rash; ESTHETICIAN SPA: No focal deficits; alert and oriented times three. Available Data (labs, X- Rays, Procedues) : hgb--9.9. ASSESSMENT/PLAN: 1. Bloody diarrhea-inf vs ischemia. better. + passing gas---no BM's or bleeding. stool path pending 2. N/V-vomiting resolved. still with nausea 3. abd pain-diffuse, colicky 4. Dysphagia/Gerd PLAN: 1. Cont IV fluids and antibiotics 2. awaiting stool path 3. Clear liquid diet 4. no urgent need for any EGD/Colon as an inpt 5. watch for toxic megacolon (abd distension, lack of bowel sounds etc) It was a pleasure seeing Guillermina Burger. Thank you for this consult. Entered by: Roshan Lang MD Sep 15, 2016 09:17
--- NOTE | 2016-09-15 10:04 | HHI.PR ---
Subjective Remarks Patient still complains of diffuse abdominal pain. Minimal nausea. No vomiting. No bowel movement. No fevers or chills. Objective Vitals Vital Signs Date Time Temp Pulse Resp B/P Pulse Ox O2 Delivery O2 Flow Rate FiO2 09/15/16 08:00 98.1 65 20 135/65 96 09/15/16 04:00 97.9 65 20 134/72 98 09/15/16 00:00 98.7 74 20 134/58 98 09/14/16 21:00 75 09/14/16 20:00 98.7 74 20 134/58 98 09/14/16 17:56 98.8 68 15 130/71 97 09/14/16 13:34 98.6 69 15 121/66 97 I/O 09/14/16 09/14/16 09/14/16 09/15/16 09/15/16 09/15/16 07:00 15:00 23:00 07:00 15:00 23:00 Intake Total 1000 ml 800 ml 1550 ml 0 ml Balance 1000 ml 800 ml 1550 ml 0 ml Intake Oral 800 ml IV Total 1000 ml 1550 ml 0 ml # Voids 2 3 2 Result Diagram: 09/15/1615 09/15/16 0615 Objective Remarks GENERAL: Well-nourished, well-developed patient. SKIN: Warm and dry. HEAD: Normocephalic. EYES: No scleral icterus. No injection or drainage. NECK: Supple, trachea midline. No JVD or lymphadenopathy. CARDIOVASCULAR: Regular rate and rhythm without murmurs, gallops, or rubs. RESPIRATORY: Breath sounds equal bilaterally. No accessory muscle use. GASTROINTESTINAL: Bowel sounds normoactive. She is tender to palpation throughout the abdomen without guarding. Abdomen is soft. EXTREMITIES: No cyanosis, or edema. NEUROLOGICAL: Awake, alert, and oriented x 3. Non-focal. A/P Problem List: (1) Colitis ICD Code: K52.9 Status: Acute (2) Nausea & vomiting ICD Code: R11.2 Status: Resolved (3) Diarrhea in adult patient ICD Code: R19.7 Status: Resolved (4) Acute blood loss anemia ICD Code: D62 Status: Acute (5) Acute kidney injury ICD Code: N17.9 Status: Resolved (6) Hypertension ICD Code: I10 Status: Chronic Assessment and Plan Acute colitis with associated nausea, vomiting, diarrhea with hematochezia: CT scan does show significant findings indicative of colitis with thickening of the colon wall from the large bowel distal transverse colon to the distal sigmoid colon. She has had no further diarrhea. Will continue Cipro and Flagyl. Start on Colace. Diet as tolerated. GI is following her. Acute blood loss anemia from hematochezia: Hemoglobin has dropped 2.5 g since admission could be dilutional versus continued GI bleed. This is now stable overnight. No further bleeding. Monitor H&H. Continue PPI. Acute kidney injury: Secondary to dehydration. Resolved. Hep-Lock IV. Hypertension: Currently normotensive. Resume home blood pressure meds once blood pressure increases. DVT prevention: Sequential compression devices, avoid chemical prophylaxis secondary to GI bleed Problem Qualifiers (1) Hypertension: Qualified Code: I15.9 - Secondary hypertension Jazzy Romero MD Sep 15, 2016 10:04
[2016-09-15] MEDS: DOCUSATE SODIUM 100 MG CAP PO SCH ×3 (10:37→20:31)
[2016-09-15 12:00] VITALS: BP 144/68; PULSE 65; RESP 18; TEMP 97.7; O2SAT 100
[2016-09-15] MEDS: HYDROmorphone HCL PF 1 MG/ML VIAL IV PUSH PRN (15:19)
[2016-09-15] MEDS: ONDANSETRON HCL 4 MG/2 ML VIAL IV PUSH PRN (15:22)
[2016-09-15 16:00] VITALS: BP 162/85; PULSE 65; RESP 18; TEMP 98.5; O2SAT 98
[2016-09-15 20:00] VITALS: BP 158/86; PULSE 65; RESP 20; TEMP 98.5; O2SAT 98
[2016-09-15] MEDS: ATORVASTATIN 40 MG TAB PO SCH (20:31)
[2016-09-16] VITALS: BP 141/74; PULSE 70; RESP 20; TEMP 97.9; O2SAT 97
[2016-09-16] MEDS: metroNIDAZOLE 500 MG INJ 100 ML IV SCH ×2 (03:08→08:55)
[2016-09-16] MEDS: CIPROFLOXACIN 200 MG PREMIX 100 ML IV SCH ×2 (05:09→16:59)
[2016-09-16 08:00] VITALS: BP 124/69; PULSE 65; RESP 20; TEMP 98.6; O2SAT 98
[2016-09-16] MEDS: PANTOPRAZOLE SOD 40 MG DELAYED RELEASE TAB PO SCH (08:54)
[2016-09-16] MEDS: SODIUM CHLORIDE 0.9% FLUSH 5 ML FLUSH FLUSH SCH ×2 (08:56→20:15)
[2016-09-16] MEDS: DOCUSATE SODIUM 100 MG CAP PO SCH (08:56)
--- NOTE | 2016-09-16 10:00 | HHI.GIFU ---
GI Follow-up Note Consult Follow-up Subjective: Patient laying in bed --less abd pain. had loose stools with red blood x1 this am . Objective: PHYSICAL EXAMINATION: Vitals signs stable No fever CHEST: Chest is clear to auscultation and percussion. CARDIAC: Regular rate and rhythm with no murmur gallop or rubs. ABDOMEN: Soft, nondistended, less tender--no rebound; no hepatosplenomegaly; bowel sounds are present in all four quadrants. EXTREMITIES: No edema. SKIN: no jaundice. HOME ADMINISTRATOR: No focal deficits; alert and oriented times three. Available Data (labs, X- Rays, Procedues) : ASSESSMENT/PLAN: 1. Bloody diarrhea-inf vs ischemia--had loose stool with bleeding this am x1. stool path pending 2. N/V-improved 3. abd pain-diffuse, colicky--improved 4. Dysphagia/Gerd-stable PLAN: 1. Cont IV fluids and antibiotics 2. awaiting stool path 3. Clear liquid diet 4. no urgent need for any EGD/Colon as an inpt 5. stop Colace 6. CBC It was a pleasure seeing Guillermina Burger. Thank you for this consult. Entered by: Roshan Lang MD Sep 16, 2016 10:00
[2016-09-16 10:39] LABS: BASOPHIL % 0.5 % (0.0-2.0); EOSINOPHIL # 0.1 TH/MM3 (0-0.4); EOSINOPHIL % 1.9 % (0.0-4.0); HEMO FLAGS DIFF FINAL; LYMPH % 16.7 % (9.0-44.0); LYMPHOCYTE # 0.9 TH/MM3 (1.0-4.8); MEAN CELL VOLUME 84.5 FL (80.0-100.0); MEAN CORPUSCULAR HEMOGLOBIN 28.6 PG (27.0-34.0); MEAN CORPUSCULAR HGB CONC 33.8 % (32.0-36.0); MONO % 6.7 % (0.0-8.0); NEUT % 74.2 % (16.0-70.0); PLATELET COUNT 197 TH/MM3 (150-450); RED BLOOD COUNT 3.43 MIL/MM3 (4.00-5.30); RED CELL DISTRIBUTION WIDTH 13.8 % (11.6-17.2); WHITE BLOOD COUNT 5.4 TH/MM3 (4.0-11.0)
[2016-09-16 11:26] LABS: C. DIFF EPI 027 PRESUMPTIVE NEGATIVE (NEGATIVE)
[2016-09-16 11:39] LABS: C. DIFF TOXIN PCR POSITIVE (NEGATIVE)
[2016-09-16 12:00] VITALS: BP 159/93; PULSE 65; RESP 20; TEMP 97.5; O2SAT 99
--- NOTE | 2016-09-16 12:28 | HHI.PR ---
Subjective Remarks Patient is feeling improved today, abdomen loss tender and she feels the pain has moved more into her left lower abdomen. She did have one bloody bowel movement overnight. C. difficile was positive. No nausea or vomiting. She requests to have diet advanced to full liquids. No fevers or chills. Hemoglobin is stable. Objective Vitals Vital Signs Date Time Temp Pulse Resp B/P Pulse Ox O2 Delivery O2 Flow Rate FiO2 09/16/16 08:00 98.6 65 20 124/69 98 09/16/16 00:00 97.9 70 20 141/74 97 09/15/16 20:00 98.5 65 20 158/86 98 09/15/16 16:00 98.5 65 18 162/85 98 I/O 09/15/16 09/15/16 09/15/16 09/16/16 09/16/16 09/16/16 07:00 15:00 23:00 07:00 15:00 23:00 Intake Total 1550 ml 690 ml 120 ml 270 ml Balance 1550 ml 690 ml 120 ml 270 ml Intake Oral 690 ml 120 ml 270 ml IV Total 1550 ml 0 ml # Voids 2 4 3 4 # Bowel Movements 0 1 Result Diagram: 09/16/16 1025 09/15/16 0615 Objective Remarks GENERAL: Well-nourished, well-developed patient. SKIN: Warm and dry. HEAD: Normocephalic. EYES: No scleral icterus. No injection or drainage. NECK: Supple, trachea midline. No JVD or lymphadenopathy. CARDIOVASCULAR: Regular rate and rhythm without murmurs, gallops, or rubs. RESPIRATORY: Breath sounds equal bilaterally. No accessory muscle use. GASTROINTESTINAL: Bowel sounds normoactive. She is tender to palpation throughout the abdomen without guarding. Abdomen is soft. EXTREMITIES: No cyanosis, or edema. NEUROLOGICAL: Awake, alert, and oriented x 3. Non-focal. A/P Problem List: (1) Colitis ICD Code: K52.9 Status: Acute (2) Nausea & vomiting ICD Code: R11.2 Status: Resolved (3) Diarrhea in adult patient ICD Code: R19.7 Status: Resolved (4) Acute blood loss anemia ICD Code: D62 Status: Acute (5) Acute kidney injury ICD Code: N17.9 Status: Resolved (6) Hypertension ICD Code: I10 Status: Chronic Assessment and Plan Acute C. difficile colitis colitis with associated nausea, vomiting, diarrhea with hematochezia: CT scan does show significant findings indicative of colitis with thickening of the colon wall from the large bowel distal transverse colon to the distal sigmoid colon. We'll start her on by mouth vancomycin. Check a KUB and she has not really had any further diarrhea and to rule out ileus. Discussed with Dr. Chino. Acute blood loss anemia from hematochezia: Hemoglobin has dropped 2.5 g since admission could be dilutional versus continued GI bleed. This has remained stable. Monitor H&H. Continue PPI. Acute kidney injury: Secondary to dehydration. Resolved. Hep-Lock IV. Hypertension: Currently normotensive. Resume home blood pressure meds once blood pressure increases. DVT prevention: Sequential compression devices, avoid chemical prophylaxis secondary to GI bleed Problem Qualifiers (1) Hypertension: Qualified Code: I15.9 - Secondary hypertension Jazzy Romero MD Sep 16, 2016 12:28
[2016-09-16] MEDS: VANCOMYCIN 500 MG VIAL (FOR ORAL USE ONLY) PO SCH ×3 (12:54→20:15)
--- NOTE | 2016-09-16 13:56 | RADHPO ---
EXAM DATE/TIME: 09/16/2016 13:27 [facility] COMPARISON: No previous studies available for comparison. INDICATIONS : Abdominal pain and diahrrea; evaluate for ileus. MEDICAL HISTORY : Gastroesophageal reflux disease. SURGICAL HISTORY : Hysterectomy. Appendectomy. Bladder and rectum repair. ENCOUNTER: Subsequent ACUITY: 4 - 6 days PAIN SCORE: 5/10 LOCATION: Bilateral mid abdomen FINDINGS: Supine view of the abdomen was performed. No bowel obstruction. Air throughout the colon. No abnorma l masses, calcifications, or organomegaly is seen. Bilateral hip prostheses. Degenerative changes low er lumbar spine. The osseous structures are unremarkable. CONCLUSION: Unremarkable abdomen. Samy Bael MD on September 16, 2016 at 13:54 Board Certified Radiologist. This report was verified electronically.
[2016-09-16 16:00] VITALS: BP 168/90; PULSE 65; RESP 20; TEMP 98.6; O2SAT 98
[2016-09-16] MEDS ORDERED: LISINOPRIL 20 MG TAB PO ONE (17:00)
[2016-09-16 20:00] VITALS: BP 162/79; PULSE 64; RESP 18; TEMP 98.9; O2SAT 98
[2016-09-16] MEDS: ATORVASTATIN 40 MG TAB PO SCH (20:15)
[2016-09-16] MEDS ORDERED: LISINOPRIL 20 MG TAB PO SCH (21:00)
[2016-09-17] VITALS: BP 143/83; PULSE 68; RESP 18; TEMP 98.7; O2SAT 98
[2016-09-17] MEDS: CIPROFLOXACIN 200 MG PREMIX 100 ML IV SCH (04:35)
[2016-09-17 08:00] VITALS: BP_SYST 147; BP_SYST 165; BP_DIAS 70; BP_DIAS 80; PULSE 104; PULSE 65; RESP 18; RESP 22; TEMP 96.3; TEMP 98.8; O2SAT 97; O2SAT 99
[2016-09-17] MEDS: PANTOPRAZOLE SOD 40 MG DELAYED RELEASE TAB PO SCH (09:21)
[2016-09-17] MEDS: VANCOMYCIN 500 MG VIAL (FOR ORAL USE ONLY) PO SCH ×4 (09:21→21:42)
[2016-09-17] MEDS: SODIUM CHLORIDE 0.9% FLUSH 5 ML FLUSH FLUSH SCH ×2 (09:21→21:42)
[2016-09-17] MEDS: LISINOPRIL 20 MG TAB PO SCH ×2 (09:21→21:41)
[2016-09-17 10:30] LABS: HEMATOCRIT 31.2 % (35.0-46.0); REVIEW FLAG FINAL
--- NOTE | 2016-09-17 11:01 | HHI.GIFU ---
GI Follow-up Note Consult Follow-up Subjective: Patient laying in bed comfortably, no new complaints and states she is feeling better. Had only one small BM last night. Mild nausea but arlene PO. Objective: PHYSICAL EXAMINATION: Vitals signs stable No fever CHEST: non-labored breathing ABDOMEN: Soft, minimal tenderness EXTREMITIES: No clubbing, cyanosis, or edema. SKIN: warm and dry DIRECTOR OF STRATEGY & MOBILE: alert and oriented times three. Available Data (labs, X- Rays, Procedues) : H&H stable. C Dif PCR pos ASSESSMENT/PLAN: 1. Acute bloody diarrhea with pain-improving. Clinical presentation more c/w ischemic colitis but can not r/o food born illness. C. Dif (CDAD) possible but typically non- bloody diarrhea. OK with oral Flagyl but suggest a lower dose. Advance diet as tolerated. It was a pleasure seeing Guillermina Burger. Thank you for this consult. Entered by: Festus Ramos MD Sep 17, 2016 11:01
[2016-09-17 12:00] VITALS: BP 167/79; PULSE 65; RESP 18; TEMP 97.8; O2SAT 97
--- NOTE | 2016-09-17 14:35 | HHI.PR ---
Subjective Remarks Patient feels improved today less abdominal pain. Tolerating full liquid diet. She did have 2 small loose stools last night 100 small amount of blood in it. Objective Vitals Vital Signs Date Time Temp Pulse Resp B/P Pulse Ox O2 Delivery O2 Flow Rate FiO2 09/17/16 12:00 97.8 65 18 167/79 97 09/17/16 08:00 96.3 104 22 147/70 99 09/17/16 08:00 98.8 65 18 165/80 97 09/17/16 00:00 98.7 68 18 143/83 98 09/16/16 20:00 98.9 64 18 162/79 98 09/16/16 16:00 98.6 65 20 168/90 98 I/O 09/16/16 09/16/16 09/16/16 09/17/16 09/17/16 09/17/16 06:59 14:59 22:59 06:59 14:59 22:59 Intake Total 1800 ml 150 ml 240 ml Balance 1800 ml 150 ml 240 ml Intake Oral 1800 ml 240 ml IV Total 150 ml # Voids 9 # Bowel Movements 3 Result Diagram: 09/17/16 1015 09/15/16 0615 Objective Remarks GENERAL: Well-nourished, well-developed patient. SKIN: Warm and dry. HEAD: Normocephalic. EYES: No scleral icterus. No injection or drainage. NECK: Supple, trachea midline. No JVD or lymphadenopathy. CARDIOVASCULAR: Regular rate and rhythm without murmurs, gallops, or rubs. RESPIRATORY: Breath sounds equal bilaterally. No accessory muscle use. GASTROINTESTINAL: Bowel sounds normoactive. Abdomen soft nontender to palpation throughout. EXTREMITIES: No cyanosis, or edema. NEUROLOGICAL: Awake, alert, and oriented x 3. Non-focal. A/P Problem List: (1) Colitis ICD Code: K52.9 Status: Acute (2) Nausea & vomiting ICD Code: R11.2 Status: Resolved (3) Diarrhea in adult patient ICD Code: R19.7 Status: Resolved (4) Acute blood loss anemia ICD Code: D62 Status: Acute (5) Acute kidney injury ICD Code: N17.9 Status: Resolved (6) Hypertension ICD Code: I10 Status: Chronic Assessment and Plan Acute C. difficile colitis versus ischemic colitis with associated nausea, vomiting, diarrhea with hematochezia: CT scan does show significant findings indicative of colitis with thickening of the colon wall from the large bowel distal transverse colon to the distal sigmoid colon. Continue by mouth vancomycin, continue Cipro. KUB on 09/16 showed normal bowel pattern. Colonoscopy as outpatient. Advance diet to regular. Discussed with Dr. Bryant. -Consider CTA abdomen is outpatient to evaluate the vasculature. Discussed with patient. Acute blood loss anemia from hematochezia: Hemoglobin has dropped 2.5 g since admission could be dilutional versus continued GI bleed. This has remained stable. Monitor H&H. Continue PPI. Acute kidney injury: Secondary to dehydration. Resolved. Hep-Lock IV. Hypertension: Currently normotensive. Resume home blood pressure meds once blood pressure increases. DVT prevention: Sequential compression devices, avoid chemical prophylaxis secondary to GI bleed Discharge Planning Possible discharge home tomorrow Problem Qualifiers (1) Hypertension: Qualified Code: I15.9 - Secondary hypertension Jazzy Romero MD Sep 17, 2016 14:34
[2016-09-17] MEDS ORDERED: HYDROmorphone HCL 2 MG TAB PO PRN (14:45)
[2016-09-17 16:00] VITALS: BP 174/90; PULSE 62; RESP 18; TEMP 98.8; O2SAT 95
[2016-09-17] MEDS: DILTIAZEM-CD 240 MG CAP ER PO SCH (17:32)
[2016-09-17 20:00] VITALS: BP 149/85; PULSE 65; RESP 20; TEMP 99.4; O2SAT 96
[2016-09-17] MEDS: CIPROFLOXACIN 250 MG TAB PO SCH (21:41)
[2016-09-17] MEDS: ATORVASTATIN 40 MG TAB PO SCH (21:42)
[2016-09-18] VITALS: BP 136/79; PULSE 65; RESP 20; TEMP 99.2; O2SAT 96
[2016-09-18] MEDS: traMADol HCL 50 MG TAB PO PRN ×3 (02:31→11:39)
[2016-09-18 04:00] VITALS: BP 154/84; PULSE 65; RESP 20; TEMP 99.1; O2SAT 97
[2016-09-18] MEDS: ONDANSETRON HCL 4 MG/2 ML VIAL IV PUSH PRN (05:43)
[2016-09-18 08:00] VITALS: BP 164/87; PULSE 65; RESP 16; TEMP 97.9; O2SAT 99
--- NOTE | 2016-09-18 08:34 | HHI.GIFU ---
GI Follow-up Note Consult Follow-up Subjective: Patient laying in bed comfortably, states abd pain much better and no further BMs, no diarrhea or rectal bleeding. Did not feel well last night with nausea after eating roast beef with gravy and mashed potatoes. Objective: PHYSICAL EXAMINATION: Vitals signs stable No fever CARDIAC: Regular rate. ABDOMEN: Soft, nondistended, no significant tenderness. EXTREMITIES: No clubbing, cyanosis, or edema. SKIN: warm and dry KNOTTING MACHINE OPERATOR: alert and oriented times three. Available Data (labs, X- Rays, Procedues) : no new results ASSESSMENT/PLAN: 1. Acute colitis with bloody diarrhea-clinically improving. 2. C. Diff pos PCR-on oral vanco but clinical presentation not typical. 3. Headache and nausea-on pantoprazole. Med related? tramadol? Advised her to eat more bland today. If able to arlene PO could consider going home to convalesce. It was a pleasure seeing Guillermina Burger. Thank you for this consult. Entered by: Festus Ramos MD Sep 18, 2016 08:34
[2016-09-18] MEDS: LISINOPRIL 20 MG TAB PO SCH (08:54)
[2016-09-18] MEDS: CIPROFLOXACIN 250 MG TAB PO SCH (08:54)
[2016-09-18] MEDS: DILTIAZEM-CD 240 MG CAP ER PO SCH (08:54)
[2016-09-18] MEDS: PANTOPRAZOLE SOD 40 MG DELAYED RELEASE TAB PO SCH (08:54)
[2016-09-18] MEDS: VANCOMYCIN 500 MG VIAL (FOR ORAL USE ONLY) PO SCH ×2 (08:55→11:39)
[2016-09-18] MEDS: SODIUM CHLORIDE 0.9% FLUSH 5 ML FLUSH FLUSH SCH (08:59)
[2016-09-18 12:00] VITALS: BP 157/86; PULSE 65; RESP 16; TEMP 97; O2SAT 96
[2016-09-18] MEDS ORDERED: VANC500I3 PO (12:16)
[2016-09-18] MEDS ORDERED: ZOFR4TAB3 SL (12:16)
--- NOTE | 2016-09-18 12:17 | HHI.DS ---
Discharge Summary Admission Date Sep 13, 2016 at 16:37 Discharge Date: Sep 18, 2016 Admitting Diagnosis colitis. Acute kidney injury. (1) Colitis ICD Code: K52.9 Diagnosis: Principal (2) Nausea & vomiting ICD Code: R11.2 Diagnosis: Principal (3) Diarrhea in adult patient ICD Code: R19.7 Diagnosis: Principal (4) Acute blood loss anemia ICD Code: D62 Diagnosis: Principal (5) Acute kidney injury ICD Code: N17.9 Diagnosis: Principal (6) Hypertension ICD Code: I10 Diagnosis: Secondary Procedures None Brief History - From Admission 76-year-old female with known history of hypertension, bradycardia requiring pacemaker, gastroesophageal reflux, history of inflammatory bowel disease who presented to the hospital because acute onset nausea, vomiting, diarrhea with bright red blood per rectum. Patient states that she is in normal state of health until Thursday at approximately 6:30 PM when she started developing nausea and vomiting. Shortly after that she started having diarrhea at least 2 episodes prior to noticing bright red blood in her stool. Patient has significant abdominal pain, unable to tolerate any food, still with hematochezia so she came to the hospital for evaluation. Patient had laboratory studies done which did indicate some acute kidney injury. CT scan was done which have rather significant findings of marked circumferential bowel wall thickening involving the distal sigmoid colon to the distal transverse colon with adjacent pericolonic inflammatory stranding and trace pericolonic fluid. Those reasons is recommended by the ER physician that the patient be admitted the hospital for further evaluation management. Patient states that prior to her symptoms starting she had tomato juice for breakfast, salad for lunch. She noticed some swelling in her lower extremities whenever golfing that day. She denies any recent sick exposures or any recent antibiotic use. Dr. Magana is her inbound customer service representative who performed upper and lower endoscopies approximately 3 years ago. She is scheduled to have upper endoscopy performed in the next 10 days. CBC/BMP: 09/17/16 1015 09/15/16 0615 Significant Findings Laboratory Tests Test 09/16/16 09/16/16 09/17/16 06:30 10:25 10:15 Stool C. difficile Toxin (PCR) POSITIVE (NEGATIVE) Red Blood Count 3.43 MIL/MM3 (4.00-5.30) Hemoglobin 9.8 GM/DL 10.0 GM/DL (11.6-15.3) (11.6-15.3) Hematocrit 29.0 % 31.2 % (35.0-46.0) (35.0-46.0) Neutrophils (%) (Auto) 74.2 % (16.0-70.0) Lymphocytes # (Auto) 0.9 TH/MM3 (1.0-4.8) Imaging Last Impressions Abdomen X-Ray 09/16/16 0000 Signed Impressions: Service Date/Time: Friday, September 16, 2016 13:27 - CONCLUSION: Unremarkable abdomen. Samy Beal MD Abdomen/Pelvis CT 09/13/16 1442 Signed Impressions: Service Date/Time: Tuesday, September 13, 2016 15:47 - CONCLUSION: 1. Abnormal appearance of the large bowel from the distal transverse colon to the distal sigmoid colon as described above. A small amount of a coming free fluid is seen. This is characteristic of colitis. 2. Small fat-containing umbilical hernia and hiatal hernias are noted. Jason Betts MD PE at Discharge GENERAL: Well-nourished, well-developed patient. SKIN: Warm and dry. HEAD: Normocephalic. EYES: No scleral icterus. No injection or drainage. NECK: Supple, trachea midline. No JVD or lymphadenopathy. CARDIOVASCULAR: Regular rate and rhythm without murmurs, gallops, or rubs. RESPIRATORY: Breath sounds equal bilaterally. No accessory muscle use. GASTROINTESTINAL: Bowel sounds normoactive. Abdomen soft nontender to palpation throughout. EXTREMITIES: No cyanosis, or edema. NEUROLOGICAL: Awake, alert, and oriented x 3. Non-focal. Pt update on day of discharge Patient is feeling well today. Overnight she did have nausea. No further hematochezia. Hospital Course The patient was admitted to the hospital and treated with antibiotics. C. difficile was positive. Her abdominal pain slowly improved. She did have several episodes of small amount of hematochezia. Hemoglobin did drop but has remained stable around 9 and has actually increased to 10 today. The patient is tolerating a regular diet. I discussed her case with Dr. Bryant yesterday. Recommended vancomycin by mouth total 10 day course. Follow-up with GI next week. Patient will need repeat colonoscopy as outpatient. Also consider CTA abdomen to rule out any ischemia. I discussed these plans in detail with the patient. She is instructed to return to the ER for fever, vomiting, or significant lead per rectum. Follow-up with GI next week. Pt Condition on Discharge: Stable Discharge Disposition: Discharge Home Discharge Time: > 30 minutes Discharge Instructions DIET: Follow Instructions for: As Tolerated, No Restrictions Activities you can perform: Regular-No Restrictions New Medications: Ondansetron Odt (Zofran Odt) 4 Mg Tab 4 MG SL Q6HR PRN Nausea/Vomiting #30 Ref 0 TAB Vancomycin Inj (Vancomycin Inj) 500 Mg Inj 125 MG PO QID colitis Days 10 INJECTION Continued Medications: Aspirin (Aspirin) 325 Mg Tab 325 MG PO DAILY #30 Ref 0 TAB Atorvastatin (Atorvastatin) 40 Mg Tab 40 MG PO HS Cholesterol Management #30 Ref 0 TAB Calcium Carbonate-Cholecalciferol (Calcium 600 + D) 600-200 Mg-Unit Tab 1 TAB PO DAILY TAB Coenzyme Q10 (Ubidecarenone) (Coq-10) 100 Mg Cap 1 CAP PO DAILY Diltiazem ER 24 HR (Diltiazem ER 24 HR) 240 Mg Yahaira 240 MG PO DAILY #30 Ref 0 TAB Docusate Sodium (Stool Softener) 100 Mg Cap 1 CAP PO HS Esomeprazole DR (Nexium) 20 Mg Capdr 20 MG PO DAILY Ref 0 CAP Hydralazine (Hydralazine) 100 Mg Tab 100 MG PO TID Take with meals Blood Pressure Management Ref 0 TAB Hydrochlorothiazide (Hydrochlorothiazide) 25 Mg Tab 25 MG PO DAILY #30 Ref 0 TAB Lisinopril (Lisinopril) 40 Mg Tab 40 MG PO BID Blood Pressure Management #30 Ref 0 TAB Oxybutynin (Ditropan) 5 Mg Tab 5 MG PO Q12HR Urinary Symptom Managemen #60 Ref 0 TAB Pantoprazole (Pantoprazole) 40 Mg Tab 40 MG PO DAILY Reflux #30 Ref 0 TAB Jazzy Romero MD Sep 18, 2016 12:17
== END 2016-09-18 14:30 | disposition home or self-care (01) | DRG 372 ==
LOC: PHED 14:05 → PHEDA 16:37 → PH3A 17:57
PROVIDERS: ADMIT Family Medicine; ATTEND Family Medicine
DX: A04.7 Enterocolitis due to Clostridium difficile (principal); N17.9 Acute kidney failure, unspecified; K55.9 Vascular disorder of intestine, unspecified; D62 Acute posthemorrhagic anemia; E86.0 Dehydration; R13.10 Dysphagia, unspecified; I15.9 Secondary hypertension, unspecified; E78.00 Pure hypercholesterolemia, unspecified; M19.90 Unspecified osteoarthritis, unspecified site; R15.9 Full incontinence of feces; K21.9 Gastro-esophageal reflux disease without esophagitis; E78.5 Hyperlipidemia, unspecified; K57.90 Diverticulosis of intestine, part unspecified, without perforation or abscess without bleeding; Z88.5 Allergy status to narcotic agent; Z88.0 Allergy status to penicillin; Z88.2 Allergy status to sulfonamides; Z91.030 Bee allergy status; Z96.643 Presence of artificial hip joint, bilateral; Z96.653 Presence of artificial knee joint, bilateral; Z95.0 Presence of cardiac pacemaker; Z80.3 Family history of malignant neoplasm of breast; Z80.1 Family history of malignant neoplasm of trachea, bronchus and lung; Z80.42 Family history of malignant neoplasm of prostate; Z82.49 Family history of ischemic heart disease and other diseases of the circulatory system; Z86.010 Personal history of colon polyps; Z87.11 Personal history of peptic ulcer disease
CPT/HCPCS: 74000; 74177; 80048; 80053; 81001; 83605; 83690; 83735; 85014; 85018; 85025; 87205; 87328; 87329; 87493; 96361; 96374; C9113; J0744; J1170; J1956; J2405; J7030; Q9967

== ENCOUNTER 2016-10-13 14:33 | Emergency (ER) | payer MEDICARE, OTHER ==
[~2016-10-13] VITALS: Ht 157.5 cm; Wt 68.0 kg
[~2016-10-13 14:33] MED LIST changes: -APIX2.5T PO; +ASPI325T PO; -ATOR40TA PO; +ATOR40TA16 PO; -BACT2OIN EACH NARE; +CALC1TAB30 PO; -CALC600T44 PO; -CART180C4 PO; -CO Q100C7 PO; +COQ-100C2 PO; +DILT1TAB4 PO; -EPIP0.3I IM; -HYDR-2768 PO; +HYDR-3801 PO; +HYDR25TA5 PO; -HYDR50TA15 PO; +NEXI20CA PO; -OXYB5TAB PO; +OXYB5TAB10 PO; +PANT40TA3 PO; -POLY255S PO; -PROT40TA PO; +STOO100C PO; -STOO100T PO; -ULTR50TA PO; +VANC500I3 PO; -Z.0.CPM; -Z.0.WALKERFRONT; +ZOFR4TAB3 SL
[2016-10-13 14:52] VITALS: BP 124/74; PULSE 66; RESP 18; TEMP 98.4; O2SAT 98
[2016-10-13 15:15] VITALS: BP 145/78; PULSE 66; RESP 16; TEMP 98
[2016-10-13] MEDS ORDERED: SODIUM CHLOR 0.9% 1000 ML INJ 1,000 ML IV ONE (15:22)
--- NOTE | 2016-10-13 15:26 | PD ---
HPI Chief Complaint: GI Complaint Time Seen by Provider: 15:13 Travel History International Travel<30 days: No Contact w/Intl Traveler<30days: No Traveled to known affect area: No History of Present Illness HPI The patient is a 76-year-old female who presents to the emergency department for lightheadedness, dizziness, orthostatic symptoms, and diarrhea. The patient has a recent history of C. difficile and was treated in September for colitis and C. difficile. The patient states her diarrhea returned today, approximate 7 episodes of loose, watery, stool without any visible blood. The patient states in September when she had C. difficile colitis she had abdominal pain and bloody diarrhea, but she denies any bloody diarrhea. The patient called her broadcast director operations, Dr. Magana, who referred her to the emergency department. She does complain of lightheadedness and dizziness is worse with standing upright and slightly alleviated at rest. She denies any nausea, vomiting, dysuria, frequency, or urgency. She does complain of intermittent abdominal cramping associated with her diarrhea. The patient is currently being treated for esophagitis secondary to yeast and is taking Diflucan. She is scheduled for an endoscopy in the future with her broadcast director operations. The patient's primary physician is Dr. Barrientos. [facility] Past Medical History Arthritis: Yes Asthma: No Autoimmune Disease: No Anxiety: No Depression: No Heart Rhythm Problems: Yes (Bradycardia) Cancer: No Cardiomyopathy: Yes (BRADYCARDIA) Cardiovascular Problems: Yes (pace maker) High Cholesterol: Yes Chemotherapy: No Chest Pain: No Congestive Heart Failure: No COPD: No Cerebrovascular Accident: No Diabetes: No Diminished Hearing: No Endocrine: No Gastrointestinal Disorders: Yes (GIB) GERD: Yes Genitourinary: No Hepatitis: No Hiatal Hernia: No Hypertension: Yes Immune Disorder: No Kidney Stones: No Musculoskeletal: Yes Neurologic: No Psychiatric: No Reproductive: No Respiratory: No Migraines: No Radiation Therapy: No Seizures: No Sickle Cell Disease: No Sleep Apnea: No Thyroid Disease: No Ulcer: Yes Menopausal: Yes Past Surgical History Abdominal Surgery: No AICD: No Appendectomy: Yes Body Medical Devices: BL hips and knees, pacemaker Cardiac Surgery: Yes (Pacemaker) Ear Surgery: No Endocrine Surgery: No Eye Surgery: No Genitourinary Surgery: No Gynecologic Surgery: Yes (TUMOR ON FALLOPIAN TUBE, BENIGN 1966; HYSTER A& P REPAIR) Hysterectomy: Yes Insulin Pump: No Joint Replacement: Yes (BL hips and knees) Oral Surgery: No Pacemaker: Yes (Biometric) Thoracic Surgery: No Social History Alcohol Use: Yes (Rarely) Tobacco Use: No Substance Use: No Allergies-Medications (Allergen,Severity, Reaction): Coded Allergies: Bee Sting (Verified Allergy, Severe, Lip/facial swelling, 10/13/16) Codeine (Verified Allergy, Severe, Rash, N/V, 10/13/16) Penicillin (Verified Allergy, Severe, Rash, 10/13/16) Percocet (Verified Allergy, Severe, N/V, 10/13/16) Sulfa (Verified Allergy, Severe, Swelling, 10/13/16) Vicodin (Unverified Allergy, Unknown, N/V, 10/13/16) Reported Meds & Prescriptions Reported Meds & Active Scripts Active Flagyl (Metronidazole) 500 Mg Tab 500 Mg PO BID 14 Days Zofran Odt (Ondansetron Odt) 4 Mg Tab 4 Mg SL Q6HR PRN Vancomycin Inj (Vancomycin HCl) 500 Mg Inj 125 Mg PO QID 10 Days Reported Stool Softener (Docusate Sodium) 100 Mg Cap 1 Cap PO HS Calcium 600 + D (Calcium Carbonate-Cholecalciferol) 600-200 Mg-Unit Tab 1 Tab PO DAILY Coq-10 (Coenzyme Q10 (Ubidecarenone)) 100 Mg Cap 1 Cap PO DAILY Nexium (Esomeprazole DR) 20 Mg Capdr 20 Mg PO DAILY Aspirin 325 Mg Tab 325 Mg PO DAILY Pantoprazole (Pantoprazole Sodium) 40 Mg Tab 40 Mg PO DAILY Atorvastatin (Atorvastatin Calcium) 40 Mg Tab 40 Mg PO HS Hydralazine (Hydralazine HCl) 100 Mg Tab 100 Mg PO TID Take with meals Lisinopril 40 Mg Tab 40 Mg PO BID Ditropan (Oxybutynin Chloride) 5 Mg Tab 5 Mg PO Q12HR Diltiazem ER 24 HR 240 Mg Yahaira 240 Mg PO DAILY Hydrochlorothiazide 25 Mg Tab 25 Mg PO DAILY Review of Systems Except as stated in HPI: all other systems reviewed are Neg General / Constitutional: No: Fever HENT: Positive: Lightheadedness Cardiovascular: No: Chest Pain or Discomfort Respiratory: No: Shortness of Breath Gastrointestinal: Positive: Diarrhea, Abdominal Pain (intermittent abdominal cramping), No: Nausea, Vomiting Genitourinary: No: Dysuria Musculoskeletal: Positive: Weakness Neurologic: Positive: Dizziness Physical Exam Narrative GENERAL: Awake, alert, pleasant 76-year-old female who appears her stated age and is in no acute respiratory distress. SKIN: Focused skin assessment warm/dry. HEAD: Atraumatic. Normocephalic. EYES: Pupils equal and round. No scleral icterus. No injection or drainage. ENT: No nasal bleeding or discharge. Dry mucous membranes. NECK: Trachea midline. No JVD. CARDIOVASCULAR: Regular rate and rhythm. No murmur appreciated. Heart rate in the 60s. RESPIRATORY: No accessory muscle use. Clear to auscultation. Breath sounds equal bilaterally. GASTROINTESTINAL: Abdomen soft, non-tender, nondistended. No rebound tenderness. MUSCULOSKELETAL: No obvious deformities. No clubbing. No cyanosis. No edema. NEUROLOGICAL: Awake and alert. No obvious cranial nerve deficits. Motor grossly within normal limits. Normal speech. PSYCHIATRIC: Appropriate mood and affect; insight and judgment normal. Data Data Last Documented VS Vital Signs Date Time Temp Pulse Resp B/P Pulse Ox O2 Delivery O2 Flow Rate FiO2 10/13/16 20:27 20 10/13/16 19:30 97.5 65 135/81 98 10/13/16 17:25 Room Air Orders Complete Blood Count With Diff (10/13/16 15:22) Comprehensive Metabolic Panel (10/13/16 15:22) Urinalysis - C+S If Indicated (10/13/16 15:22) Lipase (10/13/16 15:22) Iv Access Insert/Monitor (10/13/16 15:22) Ecg Monitoring (10/13/16 15:22) Oximetry (10/13/16 15:22) Ondansetron Inj (Zofran Inj) (10/13/16 15:30) Sodium Chlor 0.9% 1000 Ml Inj (Ns 1000 M (10/13/16 15:22) Sodium Chloride 0.9% Flush (Ns Flush) (10/13/16 15:30) C Diff Toxin Pcr (10/13/16 15:22) Orthostatic Vital Signs (10/13/16 15:22) Labs Laboratory Tests Test 10/13/16 10/13/16 16:34 17:24 White Blood Count 12.3 TH/MM3 Red Blood Count 4.33 MIL/MM3 Hemoglobin 12.4 GM/DL Hematocrit 37.1 % Mean Corpuscular Volume 85.6 FL Mean Corpuscular Hemoglobin 28.6 PG Mean Corpuscular Hemoglobin 33.5 % Concent Red Cell Distribution Width 14.4 % Platelet Count 219 TH/MM3 Mean Platelet Volume 8.1 FL Neutrophils (%) (Auto) 76.4 % Lymphocytes (%) (Auto) 17.4 % Monocytes (%) (Auto) 4.5 % Eosinophils (%) (Auto) 1.4 % Basophils (%) (Auto) 0.3 % Neutrophils # (Auto) 9.4 TH/MM3 Lymphocytes # (Auto) 2.1 TH/MM3 Monocytes # (Auto) 0.6 TH/MM3 Eosinophils # (Auto) 0.2 TH/MM3 Basophils # (Auto) 0.0 TH/MM3 CBC Comment DIFF FINAL Differential Comment Sodium Level 144 MEQ/L Potassium Level 3.9 MEQ/L Chloride Level 109 MEQ/L Carbon Dioxide Level 25.2 MEQ/L Anion Gap 10 MEQ/L Blood Urea Nitrogen 18 MG/DL Creatinine 1.20 MG/DL Estimat Glomerular Filtration 44 ML/MIN Rate Random Glucose 88 MG/DL Calcium Level 9.1 MG/DL Total Bilirubin 0.4 MG/DL Aspartate Amino Transf 13 U/L (AST/SGOT) Alanine Aminotransferase 16 U/L (ALT/SGPT) Alkaline Phosphatase 60 U/L Total Protein 6.6 GM/DL Albumin 3.6 GM/DL Lipase 102 U/L Urine Color YELLOW Urine Turbidity CLEAR Urine pH 7.0 Urine Specific [place] 1.015 Urine Protein NEG mg/dL Urine Glucose (UA) NEG mg/dL Urine Ketones NEG mg/dL Urine Occult Blood NEG Urine Nitrite NEG Urine Bilirubin NEG Urine Leukocyte Esterase TRACE Urine RBC 0-3 /hpf Urine WBC 0-2 /hpf Urine Squamous Epithelial 0-5 /hpf Cells Microscopic Urinalysis Comment CULT NOT INDICATED Stool C. difficile Toxin (PCR) POSITIVE Stl C. difficile Toxin PRESUMPTIVE Epiderm 027 NEGATIVE MDM Medical Decision Making Medical Screen Exam Complete: Yes Emergency Medical Condition: Yes Medical Record Reviewed: Yes Differential Diagnosis Differential diagnosis includes C. difficile, gastroenteritis, colitis, enteritis, infectious diarrhea, dehydration, electrolyte abnormality, orthostatic hypotension. Narrative Course IV was established, labs are drawn and sent, and the patient was placed on cardiac telemetry monitoring and continuous pulse oximetry monitoring. Orthostatic vital signs were obtained. The patient was administered IV fluids and Zofran. C. difficile was ordered. The patient was signed out to the oncoming physician at 4 PM with laboratory evaluation and orthostatic vital signs pending. Diagnosis Primary Impression: Diarrhea in adult patient Med/Other Pt SpecificInfo: Prescription(s) given Scripts Metronidazole (Flagyl)500 Mg [id number] Mg PO BID 14 Days Ref 0 Prov:Elise Cardoso MD 10/13/16 Disposition: 01 DISCHARGE HOME Condition: Stable Lakhwinder Erickson MD Oct 13, 2016 15:26
[2016-10-13] MEDS ORDERED: SODIUM CHLORIDE 0.9% FLUSH 10 ML FLUSH IVF PRN (15:30)
[2016-10-13] MEDS ORDERED: ONDANSETRON HCL 4 MG/2 ML VIAL IVP ONE (15:30)
[2016-10-13 16:18] VITALS: BP_SYST 113; BP_SYST 118; BP_DIAS 58; BP_DIAS 60; BP_DIAS 64; RESP 18; O2SAT 98
[2016-10-13 16:48] LABS: AUTOMATED NEUTROPHIL # 9.4 TH/MM3 (1.8-7.7); BASOPHIL % 0.3 % (0.0-2.0); EOSINOPHIL # 0.2 TH/MM3 (0-0.4); EOSINOPHIL % 1.4 % (0.0-4.0); HEMATOCRIT 37.1 % (35.0-46.0); LYMPH % 17.4 % (9.0-44.0); LYMPHOCYTE # 2.1 TH/MM3 (1.0-4.8); MEAN CELL VOLUME 85.6 FL (80.0-100.0); MEAN CORPUSCULAR HEMOGLOBIN 28.6 PG (27.0-34.0); MEAN CORPUSCULAR HGB CONC 33.5 % (32.0-36.0); MONO % 4.5 % (0.0-8.0); NEUT % 76.4 % (16.0-70.0); PLATELET COUNT 219 TH/MM3 (150-450); RED BLOOD COUNT 4.33 MIL/MM3 (4.00-5.30); RED CELL DISTRIBUTION WIDTH 14.4 % (11.6-17.2); WHITE BLOOD COUNT 12.3 TH/MM3 (4.0-11.0)
[2016-10-13 16:51] LABS: HEMO FLAGS DIFF FINAL
[2016-10-13 17:00] LABS: CHLORIDE 109 MEQ/L (98-107); POTASSIUM 3.9 MEQ/L (3.5-5.1); SODIUM (NA) 144 MEQ/L (136-145)
[2016-10-13 17:04] LABS: ANION GAP 10 MEQ/L (5-15); BICARBONATE 25.2 MEQ/L (21.0-32.0); BLOOD UREA NITROGEN 18 MG/DL (7-18)
[2016-10-13 17:07] LABS: ALT (GPT) 16 U/L (10-53); AST (GOT) 13 U/L (15-37); GLOMERULAR FILTRATION RATE 44 ML/MIN (>89)
[2016-10-13 17:09] LABS: TOTAL BILIRUBIN ADULT 0.4 MG/DL (0.2-1.0)
[2016-10-13 17:10] LABS: ALKALINE PHOSPHATASE 60 U/L (45-117)
[2016-10-13 17:25] VITALS: BP 133/63; PULSE 65; RESP 16; O2SAT 98
[2016-10-13 17:53] LABS: BLOOD, URINE NEG (NEG); GLUCOSE,URINE NEG (NEG); KETONE, URINE NEG (NEG); NITRITE,URINE NEG (NEG)
[2016-10-13 18:01] LABS: URINE COLOR YELLOW (YELLW/STRAW)
[2016-10-13 18:02] LABS: COMMENT (UR) CULT NOT INDICATED; CULTURE IF INDICATED CULT NOT INDICATED; RBC, URINE 0-3 /hpf (0-3); SQUAMOUS EPITHELIAL CELL URINE 0-5 /hpf (0-5); WBC, URINE 0-2 /hpf (0-5)
[2016-10-13] MEDS ORDERED: METR-1 PO (18:57)
--- NOTE | 2016-10-13 18:58 | PD ---
Physical Exam Date Seen by Provider: Oct 13, 2016 Narrative Patient was checked out to me at 4 PM pending IV fluids and laboratory evaluation. Patient was being seen for diarrhea and signs of dehydration. She has a recent history of C. difficile. Data Data Last Documented VS Vital Signs Date Time Temp Pulse Resp B/P Pulse Ox O2 Delivery O2 Flow Rate FiO2 10/13/16 17:25 65 16 133/63 98 Room Air 10/13/16 15:15 98.0 Orders Complete Blood Count With Diff (10/13/16 15:22) Comprehensive Metabolic Panel (10/13/16 15:22) Urinalysis - C+S If Indicated (10/13/16 15:22) Lipase (10/13/16 15:22) Iv Access Insert/Monitor (10/13/16 15:22) Ecg Monitoring (10/13/16 15:22) Oximetry (10/13/16 15:22) Ondansetron Inj (Zofran Inj) (10/13/16 15:30) Sodium Chlor 0.9% 1000 Ml Inj (Ns 1000 M (10/13/16 15:22) Sodium Chloride 0.9% Flush (Ns Flush) (10/13/16 15:30) C Diff Toxin Pcr (10/13/16 15:22) Orthostatic Vital Signs (10/13/16 15:22) Labs Laboratory Tests Test 10/13/16 10/13/16 16:34 17:24 White Blood Count 12.3 TH/MM3 Red Blood Count 4.33 MIL/MM3 Hemoglobin 12.4 GM/DL Hematocrit 37.1 % Mean Corpuscular Volume 85.6 FL Mean Corpuscular Hemoglobin 28.6 PG Mean Corpuscular Hemoglobin 33.5 % Concent Red Cell Distribution Width 14.4 % Platelet Count 219 TH/MM3 Mean Platelet Volume 8.1 FL Neutrophils (%) (Auto) 76.4 % Lymphocytes (%) (Auto) 17.4 % Monocytes (%) (Auto) 4.5 % Eosinophils (%) (Auto) 1.4 % Basophils (%) (Auto) 0.3 % Neutrophils # (Auto) 9.4 TH/MM3 Lymphocytes # (Auto) 2.1 TH/MM3 Monocytes # (Auto) 0.6 TH/MM3 Eosinophils # (Auto) 0.2 TH/MM3 Basophils # (Auto) 0.0 TH/MM3 CBC Comment DIFF FINAL Differential Comment Sodium Level 144 MEQ/L Potassium Level 3.9 MEQ/L Chloride Level 109 MEQ/L Carbon Dioxide Level 25.2 MEQ/L Anion Gap 10 MEQ/L Blood Urea Nitrogen 18 MG/DL Creatinine 1.20 MG/DL Estimat Glomerular Filtration 44 ML/MIN Rate Random Glucose 88 MG/DL Calcium Level 9.1 MG/DL Total Bilirubin 0.4 MG/DL Aspartate Amino Transf 13 U/L (AST/SGOT) Alanine Aminotransferase 16 U/L (ALT/SGPT) Alkaline Phosphatase 60 U/L Total Protein 6.6 GM/DL Albumin 3.6 GM/DL Lipase 102 U/L Urine Color YELLOW Urine Turbidity CLEAR Urine pH 7.0 Urine Specific [place] 1.015 Urine Protein NEG mg/dL Urine Glucose (UA) NEG mg/dL Urine Ketones NEG mg/dL Urine Occult Blood NEG Urine Nitrite NEG Urine Bilirubin NEG Urine Leukocyte Esterase TRACE Urine RBC 0-3 /hpf Urine WBC 0-2 /hpf Urine Squamous Epithelial 0-5 /hpf Cells Microscopic Urinalysis Comment CULT NOT INDICATED MDM Supervised Visit with KEI: No Narrative Course CBC & BMP Diagram 10/13/16 16:34 Orthostatic vital signs were negative. Patient reports she feels better following IV fluids. She has only made 2 stools that she's been here. She has been here for over 4 hours. She seems stable for discharge to home. Diagnosis Primary Impression: Diarrhea in adult patient Patient Instructions: Acute Diarrhea (ED), General Instructions Additional Instruction: Drink lots of fluids Scripts Metronidazole (Flagyl)500 Mg [id number] Mg PO BID 14 Days Ref 0 Prov:Elise Cardoso MD 10/13/16 Disposition: 01 DISCHARGE HOME Condition: Stable Elise Cardoso MD Oct 13, 2016 18:58
[2016-10-13 19:00] VITALS: BP 125/62; PULSE 64; RESP 20
[2016-10-13 19:30] VITALS: BP 135/81; TEMP 97.5
[2016-10-13 20:45] LABS: C. DIFF EPI 027 PRESUMPTIVE NEGATIVE (NEGATIVE)
[2016-10-13 22:09] LABS: C. DIFF TOXIN PCR POSITIVE (NEGATIVE)
== END 2016-10-13 20:34 | disposition home or self-care (01) ==
LOC: PHED 14:33
DX: R19.7 Diarrhea, unspecified (principal); E86.0 Dehydration; R42 Dizziness and giddiness; M19.90 Unspecified osteoarthritis, unspecified site; E78.00 Pure hypercholesterolemia, unspecified; R00.1 Bradycardia, unspecified; K21.9 Gastro-esophageal reflux disease without esophagitis; I10 Essential (primary) hypertension; Z95.0 Presence of cardiac pacemaker
CPT/HCPCS: 80053; 81001; 83690; 85025; 87493; 96361; 96374; 99284; J2405; J7030

== ENCOUNTER 2016-12-25 15:05 | Inpatient (IN) | payer OTHER, MEDICARE ==
[~2016-12-25] VITALS: Ht 157.5 cm; Wt 73.2 kg
[~2016-12-25 15:05] MED LIST changes: -CALC1TAB30 PO; -COQ-100C2 PO; -NEXI20CA PO; -VANC500I3 PO
[2017-01-15] MEDS ORDERED: CALC1TAB87 PO (14:20)
[2017-01-15] MEDS ORDERED: FLOR250C PO (14:20)
[2017-01-15] MEDS ORDERED: COQ-50CA2 PO (14:20)
[2017-01-16] MEDS ORDERED: POVIDONE IODINE 7.5% SCRUB 118 ML BOTTLE TOPICAL SCH (05:45)
[2017-01-16] MEDS ORDERED: VANCOMYCIN 1000 MG/NS 250 ML (for <70 kg) IV SCH ×2 (05:45)
[2017-01-16] MEDS ORDERED: DEXAMETHASONE SOD PHOS 4 MG/ML VIAL IV SCH (05:45)
[2017-01-16] MEDS ORDERED: CLINDAMYCIN 900 MG/NS 100 ML IV SCH ×2 (05:45)
[2017-01-16] MEDS ORDERED: CHLORHEXIDINE GLUCONATE 4% SOLN 120 ML BTL TOPICAL SCH (05:45)
[2017-01-16] MEDS ORDERED: SODIUM CHLORIDE 0.9% INJ 100 ML ONE (05:56)
[2017-01-16] MEDS ORDERED: DEXAMETHASONE SOD PHOS 20 MG/5 ML VIAL ONE (05:56)
[2017-01-16] MEDS ORDERED: INSULIN HUMAN REGULAR 1,000 UNITS/10 ML VIAL SQ PRN (06:00)
[2017-01-16] MEDS ORDERED: METOPROLOL TARTRATE 25 MG TAB PO PRN (06:00)
[2017-01-16] MEDS ORDERED: POVIDONE IODINE 5% (ANTISEPSIS KIT) 4 APPLICATIONS EACH NARE PRN (06:00)
[2017-01-16] MEDS ORDERED: CHLORHEXIDINE GLUCONATE 2 % 1 PACK (2 CLOTHS) TOPICAL PRN (06:00)
[2017-01-16] MEDS ORDERED: LACTATED RINGER'S 1000 ML IV PRN (06:00)
[2017-01-16] MEDS ORDERED: SODIUM CHLORID 0.9% 500 ML IV PRN (06:00)
[2017-01-16] MEDS ORDERED: GENTAMICIN SULFATE 80 MG/2 ML VIAL ONE (06:02)
[2017-01-16 06:06] VITALS: BP 123/64; PULSE 65; RESP 18; TEMP 98.2; O2SAT 99
[2017-01-16] MEDS ORDERED: fentaNYL CITRATE 250 MCG/5 ML AMP ONE (06:44)
[2017-01-16] MEDS ORDERED: MIDAZOLAM HCL 2 MG/2 ML VIAL ONE (06:44)
[2017-01-16] MEDS ORDERED: DEXAMETHASONE SOD PHOS 4 MG/ML VIAL ONE (06:44)
[2017-01-16] MEDS ORDERED: ACETAMINOPHEN 1000 MG/100 ML VIAL IV ONE (06:44)
[2017-01-16] MEDS ORDERED: FAMOTIDINE 20 MG/2 ML VIAL ONE (06:44)
[2017-01-16] MEDS ORDERED: SODIUM CHLORIDE 0.9% FLUSH 5 ML FLUSH IVF PRN (07:00)
[2017-01-16] MEDS ORDERED: ONDANSETRON HCL 4 MG/2 ML VIAL IVP PRN (07:00)
[2017-01-16] MEDS ORDERED: SODIUM CHLORIDE 0.9% IV SCH (07:00)
[2017-01-16] MEDS ORDERED: BISACODYL 10 MG SUPP RECTAL PRN (07:00)
[2017-01-16] MEDS ORDERED: EXPAREL PERI-ARTICULAR INJECTION (TOTAL VOL. 60 ML) P-ARTICULR SCH ×2 (07:00)
[2017-01-16] MEDS ORDERED: ACETAMINOPHEN/HYDROcodone 325 MG/7.5 MG TAB PO PRN ×2 (07:00)
[2017-01-16] MEDS ORDERED: Post-op Orders (for Pharmacy) MISC XX ONE (07:00)
[2017-01-16] MEDS ORDERED: TRANEXAMIC PERI-ARTICULAR 3,000 MG/NS 100 ML P-ARTICULR SCH ×2 (07:00)
[2017-01-16] MEDS ORDERED: NALOXONE HCL 0.4 MG/ML AMP IV PRN (07:00)
[2017-01-16] MEDS ORDERED: diphenhydrAMINE HCL 50 MG/ML VIAL IV PRN (07:00)
[2017-01-16] MEDS ORDERED: ZOLPIDEM TARTRATE 5 MG TAB PO PRN (07:00)
[2017-01-16] MEDS ORDERED: TRANEXAMIC ACID IV SCH (07:00)
[2017-01-16] MEDS ORDERED: HYDR-3288 PO (07:02)
[2017-01-16] MEDS ORDERED: ENOX30P SQ (07:02)
[2017-01-16] MEDS ORDERED: ASPI81CH37 CHEW (07:03)
[2017-01-16] MEDS ORDERED: DO NOT ADM ANY ANTICOAGULANT DRUGS PRN (08:44)
[2017-01-16] MEDS: PANTOPRAZOLE SOD 40 MG DELAYED RELEASE TAB PO SCH (09:00)
[2017-01-16] MEDS: OXYBUTYNIN CHLORIDE 5 MG TAB PO SCH ×2 (09:00→21:00)
[2017-01-16] MEDS: SODIUM CHLORIDE 0.9% FLUSH 5 ML FLUSH IVF SCH ×2 (09:00→21:00)
[2017-01-16] MEDS: DILTIAZEM-CD 240 MG CAP ER PO SCH (09:00)
[2017-01-16] MEDS: LISINOPRIL 20 MG TAB PO SCH ×2 (09:00→21:00)
[2017-01-16] MEDS: HYDROCHLOROTHIAZIDE 25 MG TAB PO SCH (09:00)
[2017-01-16] MEDS: hydrALAZINE HCL 100 MG TAB PO SCH ×3 (09:00→16:14)
[2017-01-16] MEDS: SODIUM CHLOR 0.9% 1000 ML INJ 1,000 ML IV SCH ×2 (09:08→16:12)
[2017-01-16] MEDS ORDERED: *morphine SULFATE 8 MG/ML PERIprocedure ONLY ONE ×3 (09:09→09:40)
--- NOTE | 2017-01-16 09:37 | RADRPT ---
EXAM DATE/TIME: 01/16/2017 09:11 [place] COMPARISON: No previous studies available for comparison. INDICATIONS : Post operative hip revision, left. MEDICAL HISTORY : None. SURGICAL HISTORY : Rivision of hip, right. Rivision of hip, left. ENCOUNTER: Initial ACUITY: 1 day PAIN SCORE: Non-responsive. LOCATION: Left hip. FINDINGS: Patient is status post placement of a left hip prosthesis. There is good position and alignment of th e prosthesis and bony structures. The bony structures are grossly intact. Postsurgical changes are pr esent. CONCLUSION: Good position and alignment on this postoperative examination. Jb Gonzalez MD on January 16, 2017 at 9:35 Board Certified Radiologist. This report was verified electronically.
[2017-01-16] MEDS ORDERED: MORPHINE SULFATE 8 MG/ML INJ IV PUSH PRN (09:45)
[2017-01-16 10:20] VITALS: BP 113/56; PULSE 65; RESP 15; TEMP 96.5; O2SAT 99
[2017-01-16] MEDS ORDERED: ePHEDrine/NS 25 MG/5 ML SYR IV ONE (10:27)
[2017-01-16] MEDS ORDERED: PROPOFOL 200 MG/20 ML AMP IV ONE (10:27)
[2017-01-16] MEDS ORDERED: NEOSTIGMINE 3 MG/3 ML SYR IV ONE (10:27)
[2017-01-16] MEDS ORDERED: ONDANSETRON HCL 4 MG/2 ML VIAL IV PUSH ONE (10:27)
[2017-01-16] MEDS ORDERED: PHENYLEPH/NS 1000 MCG/10 ML SYR IV ONE (10:27)
[2017-01-16] MEDS ORDERED: LACTATED RINGER'S 1000 ML INJ 1,000 ML IV ONE (10:27)
--- NOTE | 2017-01-16 11:54 | PD.CONS ---
HPI Service [facility] Hospitalists Consult Requested By Dr. Duarte Reason for Consult Medical management Primary Care Physician Ariel Barrientos M.D. Diagnoses: History of Present Illness Ms. Burger is a 76-year-old female patient who underwent a left total hip revision today by Dr. uDarte. Hospitalist team has been consulted for medical management. Patient seen and examined in room with significant other at bedside. Patient still lethargic since surgery, arouses but difficult to obtain much history. Medical history obtained mostly from medical records and assistance from significant other. Since last October patient has noticed that her hip started to pop out of socket up to 20 times with random daily activities. Patient was able to "push it back in" which each time it prompted more pain eventually leading to need for revision of her left hip. Patient denies any recent illness, fever, chills, cough, shortness of breath, abdominal pain, nausea, vomiting, diarrhea or dysuria. Per records patient was hospitalized back in September of this year for clostridium difficile. Patient has finished course of antibiotics and denies any recurrence. Other medical history includes hypertension, bradycardia requiring pacemaker, gastroesophageal reflux , and history of inflammatory bowel disease which are stable at this time. Review of Systems Musculoskeletal: COMPLAINS OF: Joint pain (left hip) Except as stated in HPI: all other systems reviewed are Neg Past Family Social History Allergies: Coded Allergies: Bee Sting (Verified Allergy, Severe, Lip/facial swelling, 01/15/17) Codeine (Verified Allergy, Severe, Rash, N/V, 01/15/17) Flagyl (Verified Allergy, Severe, Confusion, 01/15/17) Penicillin (Verified Allergy, Severe, Rash, 01/15/17) Percocet (Verified Allergy, Severe, N/V, 01/15/17) Sulfa (Verified Allergy, Severe, Swelling, 01/15/17) Vicodin (Unverified Allergy, Unknown, N/V, 01/15/17) Past Medical History Hypertension Bradycardia requiring pacemaker Inflammatory bowel disorder Past Surgical History Cataract surgery Tonsillectomy Appendectomy Bladder surgery Hysterectomy Bilateral knee replacements Left hip replacement 2 Right hip replacement Reported Medications Active Aspirin Low Dose (Aspirin) 81 Mg Chew 81 Mg CHEW BID Lovenox Inj (Enoxaparin Sodium) 30 Mg/0.3 Ml Syr 30 Mg SQ DAILY Cordova (Hydrocodone-Acetaminophen) 7.5-325 mg Tab 1-2 Tab PO Q6H PRN Reported Florastor (Saccharomyces Boulardii) 250 Mg Cap 250 Mg PO BID Coq-10 (Coenzyme Q10 (Ubidecarenone)) 50 Mg Cap 100 Mg PO DAILY Calcium 600 with Vitamin D (Calcium Carbonate-Cholecalciferol) 600-400 mg-Unit Tab 1 Tab PO DAILY Stool Softener (Docusate Sodium) 100 Mg Cap 1 Cap PO HS Aspirin 325 Mg Tab 325 Mg PO DAILY Pantoprazole (Pantoprazole Sodium) 40 Mg Tab 40 Mg PO DAILY Atorvastatin (Atorvastatin Calcium) 40 Mg Tab 40 Mg PO HS Hydralazine (Hydralazine HCl) 100 Mg Tab 100 Mg PO TID Take with meals Lisinopril 40 Mg Tab 40 Mg PO BID Ditropan (Oxybutynin Chloride) 5 Mg Tab 5 Mg PO Q12HR Diltiazem ER 24 HR 240 Mg Yahaira 240 Mg PO DAILY Hydrochlorothiazide 25 Mg Tab 25 Mg PO DAILY Active Ordered Medications Current Medications Medications (Trade) Dose Ordered Sig/Abhishek Route Start Time Stop Time Status Last Admin (Betadine 7.5% Scrub) 1 applic ONCE TOPICAL 01/16/17 05:45 01/19/17 05:44 Chlorhexidine Gluconate 1 applic 1 applic ONCE TOPICAL 01/16/17 05:45 01/19/17 05:44 01/16/17 06:13 Tranexamic Acid 1036.5 mg/Sodium Chloride 110.365 ml @ 200 mls/ hr ONCE IV 01/16/17 07:00 01/16/17 13:00 01/16/17 07:09 Bupivacaine Liposome 20 ml/ Sodium Chloride 60 ml @ 120 mls/hr ONCE P-ARTICULR 01/16/17 07:00 01/16/17 13:00 01/16/17 07:29 Tranexamic Acid 3000 mg/Sodium Chloride 130 ml @ 260 mls/hr ONCE P-ARTICULR 01/16/17 07:00 01/16/17 13:00 01/16/17 07:29 Lactated Ringer's 1,000 ml @ 30 mls/hr Q24H PRN IV 01/16/17 06:00 01/19/17 05:59 01/16/17 06:10 (NS 500 ml Inj) 500 ml @ 30 mls/hr [id number] PRN IV 01/16/17 06:00 01/19/17 05:59 (Cardizem Cd) 240 mg DAILY PO 01/16/17 09:00 (Apresoline) 100 mg TID PO 01/16/17 09:00 (Hydrodiuril) 25 mg DAILY PO 01/16/17 09:00 (Ditropan) 5 mg Q12HR PO 01/16/17 09:00 (Protonix) 40 mg DAILY PO 01/16/17 09:00 Lisinopril 40 mg 40 mg BID PO 01/16/17 09:00 (NS 1000 ml Inj) 1,000 ml @ 100 mls/hr Q10H IV 01/16/17 07:00 01/16/17 09:08 (NS Flush) 2 ml UNSCH PRN IVF 01/16/17 07:00 IV Flush 2 ml 2 ml BID IVF 01/16/17 09:00 (Vancomycin Inj/ NS 250 ml Inj) 250 ml @ 250 mls/hr Q12H IV 01/16/17 18:00 01/17/17 06:59 (Lovenox Inj) 30 mg Q24H SQ 01/16/17 21:00 (Morphine Inj) 3 mg Q3H PRN IV PUSH 01/16/17 09:45 (Cordova 7.5-325 Mg) 1 tab Q4H PRN PO 01/16/17 07:00 (Cordova 7.5-325 Mg) 2 tab Q4H PRN PO 01/16/17 07:00 (Theragran M Tab) 1 tab BID PO 01/17/17 21:00 03/18/17 20:59 (Zofran Inj) 4 mg Q6H PRN IVP 01/16/17 07:00 (Colace) 100 mg BID PO 01/17/17 21:00 (Ambien) 5 mg HS PRN PO 01/16/17 07:00 (Dulcolax Supp) 10 mg DAILY PRN RECTAL 01/16/17 07:00 (Narcan Inj) 0.4 mg UNSCH PRN IV 01/16/17 07:00 (Benadryl Inj) 25 mg Q6H PRN IV 01/16/17 07:00 Miscellaneous Information ALL NURSING DEPARTME... UNSCH PRN .XX 01/16/17 08:44 01/17/17 08:43 Family History Paternal medical history significant for heart disease and prostate cancer. Maternal history significant for breast cancer. Social History Patient lives at home with significant other. Patient denies any current or past tobacco use. Admits to occasional alcohol use. Denies any illicit drug use. Physical Exam Vital Signs Vital Signs Date Time Temp Pulse Resp B/P Pulse Ox O2 Delivery O2 Flow Rate FiO2 01/16/17 10:20 96.5 65 15 113/56 99 01/16/17 10:00 97.0 64 12 119/55 97 Nasal Cannula 2 01/16/17 09:45 64 18 116/58 95 Nasal Cannula 2 01/16/17 09:30 64 19 114/56 99 Nasal Cannula 2 01/16/17 09:15 64 15 120/56 98 Nasal Cannula 2 01/16/17 09:00 64 16 131/59 99 Nasal Cannula 2 01/16/17 08:53 97.4 73 12 124/58 100 Nasal Cannula 2 01/16/17 06:06 98.2 65 18 123/64 99 Physical Exam GENERAL: Well-nourished, well-developed patient, in no apparent distress. SKIN: No rash. Warm and dry. HEENT: Atraumatic. Normocephalic. No temporal or scalp tenderness. Pupils equal round and reactive. Extraocular motions intact. No scleral icterus. No injection or drainage. Nose without bleeding, purulent drainage or septal hematoma. Throat without erythema, tonsillar hypertrophy or exudate. Uvula midline. Airway patent. NECK: Trachea midline. No JVD or lymphadenopathy. Supple, nontender, no meningeal signs. CARDIOVASCULAR: Regular rate and rhythm. No murmur appreciated. RESPIRATORY: Clear to auscultation. Breath sounds equal bilaterally. No wheezes , rales, or rhonchi. GASTROINTESTINAL: Abdomen soft, non-tender, nondistended. No guarding. MUSCULOSKELETAL: Extremities without clubbing, cyanosis, or edema. No joint tenderness, effusion, or edema noted. NEUROLOGICAL: Awake and alert. Cranial nerves II through XII intact. Motor and sensory grossly within normal limits. Five out of 5 muscle strength in all muscle groups. Normal speech. Laboratory Laboratory Tests Test 01/16/17 06:18 Blood Type A POSITIVE Antibody Screen NEGATIVE Imaging Last Impressions Hip and Pelvis X-Ray 01/16/17 0658 Signed Impressions: Service Date/Time: Monday, January 16, 2017 09:11 - CONCLUSION: Good position and alignment on this postoperative examination. Jb Gonzalez MD Assessment and Plan Assessment and Plan Ms. Burger is a 76-year-old female patient who underwent a left total hip revision today by Dr. Duarte. Other medical history significant for hypertension , bradycardia requiring pacemaker, gastroesophageal reflux, and history of inflammatory bowel disease which are stable at this time. Hospitalist team has been consulted for medical management. Status post left hip revision - Post op day 0, 01/16/17 - Control pain, Morphone 3 mg q3h IV PRN pain >7. Cordova 7.5/325 mg PO q4h PRN per pain scale. - Control nausea, Zofran 4 mg IV PRN - Monitor for constipation, Colace 100 mg PO BID. Dulcolax supp PRN. - Continue IVF NS qt 100 ml/hr until tolerating PO intake. Encourage. - Dressing changes and ambulation Hypertension, chronic Pacemaker - Continue Diltazem HCL 240 mg PO daily, hydralazine 100 mg PO TID, HCTZ 25 mg PO daily, Lisinopril 40 mg PO BID Overactive bladder, chronic: Continue Oxybutynin 5 mg PO q12hr. GERD/GI Prophylaxis: Continue at home Protonix 40 mg PO daily. DVT Prophylaxis: Lovenox 30 mg sq q 24hr. The patient was evaluated in her bedroom, will follow laboratory in am tomorrow discussed with BREANA William. patient stable after surgery. Brenda William Jan 16, 2017 11:54 Nikita Bruno MD Jan 16, 2017 16:58
--- NOTE | 2017-01-16 13:30 | EKG ---
Date Performed: 01/16/2017 Time Performed: 06:19:12 PTAGE: 76 years EKG: Sinus rhythm Leftward axis Borderline ECG NO PREVIOUS TRACING DOCTOR: Ham Espinal Interpretating Date/Time 01/16/2017 13:24:05
[2017-01-16] MEDS: VANCOMYCIN INJ 1,000 MG in SODIUM CHLOR 0.9% 250 ML INJ 250 ML IV SCH (16:12)
[2017-01-16 16:14] VITALS: BP 129/61; PULSE 65; RESP 16; TEMP 96.5; O2SAT 99
--- NOTE | 2017-01-16 20:25 | MP ---
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 SURGEON Dr. Kaylynn Coppola RESOURCE ROOM SPECIAL EDUCATION TEACHER BREANA Bai ANESTHESIA General. ESTIMATED BLOOD LOSS 100 mL COMPLICATIONS None IMPLANTS DePuy cobalt chrome 12/14 tapered femoral head component, 32-mm diameter +5 neck pinnacle polyethylene constrained acetabular liner +4 10 degree 32 mm x 54 mm JUSTIFICATION The patient is a 76-year-old female with history of left total hip arthroplasty. She did initially have a [id number] total hip arthroplasty and started getting a metal allergy reaction with cutaneous skin changes. She has undergone revision to a cobalt chrome metal on polyethylene liner construct. The patient did do well initially for several years but then started developing symptoms of recurrent subluxation and dislocation of her left total hip arthroplasty. She was counseled as to the risks, benefits and alternatives to the above-named proposed surgical procedure. She did wish to proceed with surgery. The risks were discussed which include but limited to ,infection damage to nerve, blood vessels, pain, stiffness, continued instability and dislocation, leg length discrepancy, blood clots, pulmonary embolism and even . Again because of the patient's recurrent symptoms which interfered with activities of daily living in spite of hip precautions she did wish to proceed with surgery. PROCEDURE IN DETAIL A written consent obtained. The patient identified by name, taken to the operating room, placed supine on the operating table. General anesthesia was administered as well as 9 mg of IV clindamycin and 1 gram of IV vancomycin. The patient was carefully turned to her right lateral decubitus position. Lateral arm roll was placed. All bony prominences and pressure points were well padded. The patient's neck was carefully monitored and kept neutral. The left hip and left lower extremity were prepped and draped using isopropyl alcohol, Hibiclens solution and Chloraprep solution. After time-out was performed, a large incision was made over the posterolateral aspect of the left hip. The fascial layer was incised. The piriformis and capsule previous repair was incised and tagged with #2 FiberWire suture. I examined the hip. The components appeared stable and in good position. The patient did not have anterior instability with full extension and external rotation. The hip would dislocate posteriorly with flexion of 90 degrees, adduction of 20 degrees and internal rotation of approximately 70 degrees. At this point, the hip was dislocated. A bone tamp was used to remove the femoral head and neck component. Further exposure of the acetabulum was achieved. A 3.2 mm drill bit was then drilled into the polyethylene liner and a Synthes 4.5-mm screw was then used to dislodge and remove the acetabular liner. The edges of the polyethylene cup were then debrided and cleaned. I examined the cup and the cup was noted to have good stability. At this point, a new polyethylene acetabular liner was placed within the shell. The liner was impacted in place and tested for stability. At this point, the head was swapped out from the 36-mm head which was removed to a new femoral 32 mm head +5 neck cobalt chrome. The new head was placed and impacted. This was also tested for stability. The constrained liner ring was then placed over the femoral head and neck component. The hip was then reduced and the head was seated within the cup. At this point, the constrained liner ring was then placed into the groove insert along the constrained cup. This was further impacted in place with a bone tamp and tested for stability. The hip was taken through full range of motion and the hip was noted to have excellent stability. Then the hip was then thoroughly irrigated with sterile saline pulse lavage antibiotic impregnated solution. The pyriformis and capsular layer was closed primarily with #2 FiberWire suture. Fascial layer was closed with #1 Vicryl suture. Subcuticular layer with 2-0 Vicryl suture. Skin was closed with Dermabond. Sterile dressing was applied. The patient tolerated procedure well with no intraoperative complications noted. Ky Irvin physician teacher assistant certified was present during the entire procedure to include patient positioning and the procedure itself. The medical necessity of a physician teacher assistant was indicated due to the complexity of the procedure. He assisted with appropriate manipulation of the leg to include dislocation and reduction. He assisted with exposure as well as removal and implantation of the arthroplasty components for purposes of revision surgery. MD ROSELINE Harris/ :35 AM :02 PM
[2017-01-16 20:50] VITALS: BP 139/60; PULSE 65; RESP 17; TEMP 96.1; O2SAT 97
[2017-01-16] MEDS: ENOXAPARIN SODIUM 30 MG/0.3 ML SYRINGE SQ SCH (21:01)
[2017-01-17] VITALS (7 sets, daily range): BP systolic 99–128; BP diastolic 53–66; PULSE 62–69; RESP 16–17; TEMP 96.3–97.5; O2SAT 96–99
[2017-01-17] MEDS: SODIUM CHLOR 0.9% 1000 ML INJ 1,000 ML IV SCH ×3 (02:07→23:00)
[2017-01-17] MEDS: VANCOMYCIN INJ 1,000 MG in SODIUM CHLOR 0.9% 250 ML INJ 250 ML IV SCH (05:55)
[2017-01-17] MEDS: SODIUM CHLORIDE 0.9% FLUSH 5 ML FLUSH IVF SCH ×2 (07:22→20:22)
[2017-01-17] MEDS: hydrALAZINE HCL 100 MG TAB PO SCH ×3 (07:23→17:27)
[2017-01-17] MEDS: OXYBUTYNIN CHLORIDE 5 MG TAB PO SCH ×2 (07:23→20:22)
[2017-01-17] MEDS: PANTOPRAZOLE SOD 40 MG DELAYED RELEASE TAB PO SCH (07:23)
[2017-01-17] MEDS: HYDROCHLOROTHIAZIDE 25 MG TAB PO SCH (07:24)
[2017-01-17] MEDS: LISINOPRIL 20 MG TAB PO SCH ×2 (07:24→20:23)
[2017-01-17] MEDS: DILTIAZEM-CD 240 MG CAP ER PO SCH (07:25)
[2017-01-17 07:45] LABS: HEMATOCRIT 31.8 % (35.0-46.0); MEAN CELL VOLUME 85.7 FL (80.0-100.0); MEAN CORPUSCULAR HEMOGLOBIN 27.4 PG (27.0-34.0); MEAN CORPUSCULAR HGB CONC 31.9 % (32.0-36.0); PLATELET COUNT 243 TH/MM3 (150-450); RED BLOOD COUNT 3.71 MIL/MM3 (4.00-5.30); RED CELL DISTRIBUTION WIDTH 13.8 % (11.6-17.2); REVIEW FLAG FINAL; WHITE BLOOD COUNT 13.6 TH/MM3 (4.0-11.0)
--- NOTE | 2017-01-17 07:45 | HHI.DCPOC ---
Discharge Care Plan Diagnosis: (1) Failed total hip arthroplasty with dislocation Your Health Problems Are: Difficulty with ADL Goals to Promote Your Health * To prevent worsening of your condition and complications * To maintain your health at the optimal level Directions to Meet Your Goals Take your medications as prescribed Follow your dietary instruction Follow activity as directed Keep your appointments as scheduled Take your immunizations and boosters as scheduled If your symptoms worsen call your PCP, if no PCP go to Urgent Care Center or Emergency Room Smoking is Dangerous to Your Health. Avoid second hand smoke Call the 24-hour hour crisis hotline for domestic abuse at [place] Irvin Jan 17, 2017 07:45
--- NOTE | 2017-01-17 07:46 | HHI.FF ---
Face to Face Verification Diagnosis: (1) Failed total hip arthroplasty with dislocation Physical Therapy Gait training, Safety evaluation, Transfer training, bed to chair Hip: Total hip, Protocol: Left, Progress to weight bearing Left LE Weight Bearing: WB as tolerated Nursing RN: 3 days/week x 2 weeks Nursing: Micha teaching, Dressing changes Dressing Changes: Daily dressing change I have seen patient Guillermina Burger on 01/17/17. My clinical findings support the need for the requested home health care services because: Limited ability to care for self High risk of falls I certify that my clinical findings support that this patient is homebound because: Post-op weakness Unsteady gait/balance [place] Irvin Jan 17, 2017 07:46
[2017-01-17 08:12] LABS: ALT (GPT) 14 U/L (10-53); ANION GAP 7 MEQ/L (5-15); AST (GOT) 13 U/L (15-37); BICARBONATE 27.5 MEQ/L (21.0-32.0); BLOOD UREA NITROGEN 19 MG/DL (7-18); CHLORIDE 109 MEQ/L (98-107); GLOMERULAR FILTRATION RATE 61 ML/MIN (>89); MAGNESIUM 1.7 MG/DL (1.5-2.5); POTASSIUM 4.9 MEQ/L (3.5-5.1); SODIUM (NA) 143 MEQ/L (136-145)
[2017-01-17 08:15] LABS: ALKALINE PHOSPHATASE 56 U/L (45-117); TOTAL BILIRUBIN ADULT 0.4 MG/DL (0.2-1.0)
--- NOTE | 2017-01-17 08:51 | PD.ORT.PN ---
Subjective Subjective Remarks Doing well. Moderate left hip pain but doing well overall. No new radiating leg symptoms. Questions about surgery. No CP or SOB. Objective Vitals Vital Signs Date Time Temp Pulse Resp B/P Pulse Ox O2 Delivery O2 Flow Rate FiO2 01/17/17 08:00 96.3 69 16 111/66 98 01/17/17 07:56 97 21 01/17/17 04:40 96.8 64 17 100/53 96 01/17/17 00:12 96.9 65 17 118/58 97 01/16/17 20:50 96.1 65 17 139/60 97 01/16/17 20:41 21 01/16/17 16:14 96.5 65 16 129/61 99 01/16/17 10:20 96.5 65 15 113/56 99 01/16/17 10:00 97.0 64 12 119/55 97 Nasal Cannula 2 01/16/17 09:45 64 18 116/58 95 Nasal Cannula 2 01/16/17 09:30 64 19 114/56 99 Nasal Cannula 2 01/16/17 09:15 64 15 120/56 98 Nasal Cannula 2 01/16/17 09:00 64 16 131/59 99 Nasal Cannula 2 01/16/17 08:53 97.4 73 12 124/58 100 Nasal Cannula 2 I/O 01/16/17 01/16/17 01/16/17 01/17/17 01/17/17 01/17/17 07:00 15:00 23:00 07:00 15:00 23:00 Intake Total 1495 ml 399 ml 240 ml Output Total 2300 ml Balance -805 ml 399 ml 240 ml Intake Oral 0 ml 360 ml 240 ml IV Total 295 ml 39 ml Other 1200 ml Output Urine Total 2100 ml Estimated Blood Loss 200 ml # Voids 2 # Bowel Movements 0 0 Result Diagram: 01/17/17 0656 01/17/17 0656 Objective Remarks Sitting up in bed, NAD VSS LLE Dressing intact, minimal drainage, mild swelling but no erythema thigh and calf supple, neg homans +motor at, +sens, +nvi Assessment & Plan Ortho Post Op Day #: 1 Problem List: Assessment and Plan pod#1 s/p Rev L LA, 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 Lovenox for dvt prophylaxis Dressing changes as ordered. WBAT LLE. Posterior hip precautions. D/C planning, likely HHC tomorrow. F2F written (Kaylynn Irvin PA-C) Brenda Chiu Jan 17, 2017 08:51
--- NOTE | 2017-01-17 09:31 | HHI.PR ---
Subjective Remarks This is a pleasant 76 y/o Female who underwent a left total hip revision today by Dr. Duarte. Per records patient was hospitalized back in September of this year for clostridium difficile. Patient has finished course of antibiotics and denies any recurrence. Other medical history includes hypertension, bradycardia requiring pacemaker, gastroesophageal reflux, and history of inflammatory bowel disease which are stable at this time. 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 01/16/17, no complaint by patient no nausea, vomit or diarrhea seen in the presence of nurse appreciated. Objective Vital Signs Date Time Temp Pulse Resp B/P Pulse Ox O2 Delivery O2 Flow Rate FiO2 01/17/17 08:00 96.3 69 16 111/66 98 01/17/17 07:56 97 21 01/17/17 04:40 96.8 64 17 100/53 96 01/17/17 00:12 96.9 65 17 118/58 97 01/16/17 20:50 96.1 65 17 139/60 97 01/16/17 20:41 21 01/16/17 16:14 96.5 65 16 129/61 99 01/16/17 10:20 96.5 65 15 113/56 99 01/16/17 10:00 97.0 64 12 119/55 97 Nasal Cannula 2 01/16/17 09:45 64 18 116/58 95 Nasal Cannula 2 I/O 01/16/17 01/16/17 01/16/17 01/17/17 01/17/17 01/17/17 06:59 14:59 22:59 06:59 14:59 22:59 Intake Total 1495 ml 399 ml 240 ml Output Total 2300 ml Balance -805 ml 399 ml 240 ml Intake Oral 0 ml 360 ml 240 ml IV Total 295 ml 39 ml Other 1200 ml Output Urine Total 2100 ml Estimated Blood Loss 200 ml # Voids 2 # Bowel Movements 0 0 Result Diagram: 01/17/17 0656 01/17/17 0656 Imaging Last Impressions Hip and Pelvis X-Ray 01/16/17 0658 Signed Impressions: Service Date/Time: Monday, January 16, 2017 09:11 - CONCLUSION: Good position and alignment on this postoperative examination. 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 01/16/17 Other Results Laboratory Tests Test 01/16/17 01/17/17 06:18 06:56 Blood Type A POSITIVE Antibody Screen NEGATIVE White Blood Count 13.6 TH/MM3 Red Blood Count 3.71 MIL/MM3 Hemoglobin 10.2 GM/DL Hematocrit 31.8 % Mean Corpuscular Volume 85.7 FL Mean Corpuscular Hemoglobin 27.4 PG Mean Corpuscular Hemoglobin 31.9 % Concent Red Cell Distribution Width 13.8 % Platelet Count 243 TH/MM3 Mean Platelet Volume 7.7 FL Sodium Level 143 MEQ/L Potassium Level 4.9 MEQ/L Chloride Level 109 MEQ/L Carbon Dioxide Level 27.5 MEQ/L Anion Gap 7 MEQ/L Blood Urea Nitrogen 19 MG/DL Creatinine 0.90 MG/DL Estimat Glomerular Filtration 61 ML/MIN Rate Random Glucose 118 MG/DL Calcium Level 8.9 MG/DL Phosphorus Level 3.4 MG/DL Magnesium Level 1.7 MG/DL Total Bilirubin 0.4 MG/DL Aspartate Amino Transf 13 U/L (AST/SGOT) Alanine Aminotransferase 14 U/L (ALT/SGPT) Alkaline Phosphatase 56 U/L Total Protein 5.9 GM/DL Albumin 3.1 GM/DL Objective Remarks GENERAL: Well-developed patient, in no apparent distress. SKIN: No rash. Warm and dry. HEENT: Atraumatic. Normocephalic. NECK: Trachea midline. No JVD or lymphadenopathy. Supple, nontender, no meningeal signs. CARDIOVASCULAR: Regular rate and rhythm. No murmur appreciated. RESPIRATORY: Clear to auscultation. Breath sounds equal bilaterally. No wheezes , rales, or rhonchi. GASTROINTESTINAL: Abdomen soft, non-tender, nondistended. No guarding. MUSCULOSKELETAL: Left hip area dressed. NEUROLOGICAL: Awake and alert. no focal deficits. Medications and IVs Current Medications Medications (Trade) Dose Ordered Sig/Abhishek Route Start Time Stop Time Status Last Admin (Betadine 7.5% Scrub) 1 applic ONCE TOPICAL 01/16/17 05:45 01/19/17 05:44 Chlorhexidine Gluconate 1 applic 1 applic ONCE TOPICAL 01/16/17 05:45 01/19/17 05:44 01/16/17 06:13 Lactated Ringer's 1,000 ml @ 30 mls/hr Q24H PRN IV 01/16/17 06:00 01/19/17 05:59 01/16/17 06:10 (NS 500 ml Inj) 500 ml @ 30 mls/hr [id number] PRN IV 01/16/17 06:00 01/19/17 05:59 (Cardizem Cd) 240 mg DAILY PO 01/16/17 09:00 (Apresoline) 100 mg TID PO 01/16/17 09:00 01/16/17 16:14 (Hydrodiuril) 25 mg DAILY PO 01/16/17 09:00 (Ditropan) 5 mg Q12HR PO 01/16/17 09:00 01/17/17 07:23 (Protonix) 40 mg DAILY PO 01/16/17 09:00 01/17/17 07:23 Lisinopril 40 mg 40 mg BID PO 01/16/17 09:00 01/17/17 07:24 (NS 1000 ml Inj) 1,000 ml @ 100 mls/hr Q10H IV 01/16/17 07:00 01/17/17 02:07 (NS Flush) 2 ml UNSCH PRN IVF 01/16/17 07:00 (NS Flush) 2 ml BID IVF 01/16/17 09:00 (Lovenox Inj) 30 mg Q24H SQ 01/16/17 21:00 01/16/17 21:01 (Morphine Inj) 3 mg Q3H PRN IV PUSH 01/16/17 09:45 (Wellborn 7.5-325 Mg) 1 tab Q4H PRN PO 01/16/17 07:00 (Wellborn 7.5-325 Mg) 2 tab Q4H PRN PO 01/16/17 07:00 (Theragran M Tab) 1 tab BID PO 01/17/17 21:00 03/18/17 20:59 (Zofran Inj) 4 mg Q6H PRN IVP 01/16/17 07:00 (Colace) 100 mg BID PO 01/17/17 21:00 (Ambien) 5 mg HS PRN PO 01/16/17 07:00 (Dulcolax Supp) 10 mg DAILY PRN RECTAL 01/16/17 07:00 (Narcan Inj) 0.4 mg UNSCH PRN IV 01/16/17 07:00 (Benadryl Inj) 25 mg Q6H PRN IV 01/16/17 07:00 A/P Assessment and Plan Ms. Burger is a 76-year-old female patient who underwent a left total hip revision today by Dr. Duarte. Other medical history significant for hypertension , bradycardia requiring pacemaker, gastroesophageal reflux, and history of inflammatory bowel disease which are stable at this time. Hospitalist team has been consulted for medical management. Status post left hip revision - Post op day 0, 01/16/17 - Control pain, Morphone 3 mg q3h IV PRN pain >7. Wellborn 7.5/325 mg PO q4h PRN per pain scale. - Control nausea, Zofran 4 mg IV PRN - Monitor for constipation, Colace 100 mg PO BID. Dulcolax supp PRN. - Continue IVF NS qt 100 ml/hr until tolerating PO intake. Encourage. - Dressing changes and ambulation , given initially Vancomycin at this time on Clindamycin. Hypertension, chronic stable but decreased below 100 mm Hg. given parameters to blood pressure medicines. specially Lisinopril and Metoprolol. decreased dosage of Lisinopril Pacemaker - Continue Diltazem HCL 240 mg PO daily, hydralazine 100 mg PO TID, HCTZ 25 mg PO daily, Lisinopril 40 mg PO BID Overactive bladder, chronic: Continue Oxybutynin 5 mg PO q12hr. GERD/GI Prophylaxis: Continue at home Protonix 40 mg PO daily. DVT Prophylaxis: Lovenox 30 mg sq q 24hr. Discharge Planning Expected by tomorrow. Nikita Bruno MD Jan 17, 2017 09:31
[2017-01-17] MEDS ORDERED: traMADol HCL 50 MG TAB PO ONE (15:00)
[2017-01-17] MEDS: POLYETHYLENE GLYCOL 17 GM PKG PO SCH ×2 (20:21→21:00)
[2017-01-17] MEDS: DOCUSATE SODIUM 100 MG CAP PO SCH (20:21)
[2017-01-17] MEDS: ENOXAPARIN SODIUM 30 MG/0.3 ML SYRINGE SQ SCH (20:22)
[2017-01-17] MEDS: MULTIVITAMINS/MINERALS THERAPEUTIC TAB PO SCH (20:22)
[2017-01-17] MEDS: BISACODYL EC 5 MG TABEC PO SCH (20:23)
[2017-01-17] MEDS: MAGNESIUM HYDROXIDE SUSP 30 ML CUP PO SCH (20:23)
[2017-01-17] MEDS: traMADol HCL 50 MG TAB PO PRN (23:48)
[2017-01-18 00:50] VITALS: BP 138/65; PULSE 65; RESP 17; TEMP 97; O2SAT 98
[2017-01-18 05:03] LABS: HEMATOCRIT 31.7 % (35.0-46.0); MEAN CORPUSCULAR HEMOGLOBIN 28.1 PG (27.0-34.0); MEAN CORPUSCULAR HGB CONC 33.1 % (32.0-36.0); PLATELET COUNT 246 TH/MM3 (150-450); RED BLOOD COUNT 3.73 MIL/MM3 (4.00-5.30); RED CELL DISTRIBUTION WIDTH 13.8 % (11.6-17.2); REVIEW FLAG FINAL; WHITE BLOOD COUNT 9.8 TH/MM3 (4.0-11.0)
[2017-01-18] MEDS: traMADol HCL 50 MG TAB PO PRN ×3 (05:50→16:11)
[2017-01-18] MEDS: SODIUM CHLOR 0.9% 1000 ML INJ 1,000 ML IV SCH ×2 (07:08→07:34)
[2017-01-18] MEDS: DOCUSATE SODIUM 100 MG CAP PO SCH (07:27)
[2017-01-18] MEDS: OXYBUTYNIN CHLORIDE 5 MG TAB PO SCH (07:27)
[2017-01-18] MEDS: DILTIAZEM-CD 240 MG CAP ER PO SCH (07:28)
[2017-01-18] MEDS: MAGNESIUM HYDROXIDE SUSP 30 ML CUP PO SCH (07:28)
[2017-01-18] MEDS: BISACODYL EC 5 MG TABEC PO SCH (07:28)
[2017-01-18] MEDS: LISINOPRIL 20 MG TAB PO SCH (07:28)
[2017-01-18] MEDS: MULTIVITAMINS/MINERALS THERAPEUTIC TAB PO SCH (07:28)
[2017-01-18] MEDS: hydrALAZINE HCL 100 MG TAB PO SCH ×2 (07:28→11:50)
[2017-01-18] MEDS: PANTOPRAZOLE SOD 40 MG DELAYED RELEASE TAB PO SCH (07:28)
[2017-01-18] MEDS: HYDROCHLOROTHIAZIDE 25 MG TAB PO SCH (07:28)
[2017-01-18] MEDS: POLYETHYLENE GLYCOL 17 GM PKG PO SCH (07:29)
[2017-01-18] MEDS: SODIUM CHLORIDE 0.9% FLUSH 5 ML FLUSH IVF SCH (07:33)
[2017-01-18 08:00] VITALS: BP 173/75; PULSE 65; RESP 16; TEMP 96.2; O2SAT 97
--- NOTE | 2017-01-18 08:59 | PD.ORT.PN ---
Subjective Subjective Remarks Doing well. Moderate left hip pain but doing well overall. No new radiating leg symptoms. Considering discharge today. Questions about dislocation. No CP or SOB. (Brenda Chiu) Objective Vitals Vital Signs Date Time Temp Pulse Resp B/P Pulse Ox O2 Delivery O2 Flow Rate FiO2 01/18/17 00:50 97.0 65 17 138/65 98 01/17/17 20:45 97.5 65 17 128/66 99 01/17/17 16:00 97.3 66 17 116/53 99 01/17/17 12:00 97.4 62 17 99/58 98 I/O 01/17/17 01/17/17 01/17/17 01/18/17 01/18/17 01/18/17 07:00 15:00 23:00 07:00 15:00 23:00 Intake Total 240 ml 480 ml 240 ml 120 ml Balance 240 ml 480 ml 240 ml 120 ml Intake Oral 240 ml 480 ml 240 ml 120 ml # Voids 2 3 1 1 # Bowel Movements 0 0 0 0 (Brenda Chiu) Result Diagram: 01/18/17 0441 01/17/17 0656 Objective Remarks Sitting up in bed, RN at bedside assisting NAD VSS LLE Dressing intact, no new drainage, mild swelling but no erythema thigh and calf supple, neg homans +motor at, +sens, +nvi (Brenda Chiu) Assessment & Plan Ortho Post Op Day #: 2 Problem List: Assessment and Plan pod#2 s/p Rev L LA, posterior approach Ortho stable. Ok to d/c home w [facility] today after PT. PO pain meds as needed. Lovenox for dvt prophylaxis Dressing changes as ordered. WBAT LLE. Posterior hip precautions. F/U in [address] Duarte at [facility]. F2F written (Kaylynn Irvin PA-C) (Brenda Chiu) Assessment and Plan Consider discontinuing knee immobilizer (Maximus Lomax MD) Brenda Chiu Jan 18, 2017 08:59 Maximus Lomax MD Jan 18, 2017 09:13
--- NOTE | 2017-01-18 09:13 | HHI.PR ---
Subjective Remarks This is a pleasant 76 y/o Female who underwent a left total hip revision today by Dr. Duarte. Per records patient was hospitalized back in September of this year for clostridium difficile. Patient has finished course of antibiotics and denies any recurrence. Other medical history includes hypertension, bradycardia requiring pacemaker, gastroesophageal reflux, and history of inflammatory bowel disease which are stable at this time. 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 01/16/17. 01/18: Patient seen in her bedroom in the presence of PT specialist working with the patient at this time, she has no nausea, vomit or diarrhea, has constipation. her present okay from Orthopedic Surgery to be discharged home scripts in Chart. Objective Vital Signs Date Time Temp Pulse Resp B/P Pulse Ox O2 Delivery O2 Flow Rate FiO2 01/18/17 00:50 97.0 65 17 138/65 98 01/17/17 20:45 97.5 65 17 128/66 99 01/17/17 16:00 97.3 66 17 116/53 99 01/17/17 12:00 97.4 62 17 99/58 98 I/O 01/17/17 01/17/17 01/17/17 01/18/17 01/18/17 01/18/17 07:00 15:00 23:00 07:00 15:00 23:00 Intake Total 240 ml 480 ml 240 ml 120 ml Balance 240 ml 480 ml 240 ml 120 ml Intake Oral 240 ml 480 ml 240 ml 120 ml # Voids 2 3 1 1 # Bowel Movements 0 0 0 0 Result Diagram: 01/18/17 0441 01/17/17 0656 Imaging Last Impressions Hip and Pelvis X-Ray 01/16/17 0658 Signed Impressions: Service Date/Time: Monday, January 16, 2017 09:11 - CONCLUSION: Good position and alignment on this postoperative examination. 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 01/16/17 Other Results Laboratory Tests Test 01/16/17 01/17/17 01/18/17 06:18 06:56 04:41 Blood Type A POSITIVE Antibody Screen NEGATIVE Sodium Level 143 MEQ/L Potassium Level 4.9 MEQ/L Chloride Level 109 MEQ/L Carbon Dioxide Level 27.5 MEQ/L Anion Gap 7 MEQ/L Blood Urea Nitrogen 19 MG/DL Creatinine 0.90 MG/DL Estimat Glomerular Filtration 61 ML/MIN Rate Random Glucose 118 MG/DL Calcium Level 8.9 MG/DL Phosphorus Level 3.4 MG/DL Magnesium Level 1.7 MG/DL Total Bilirubin 0.4 MG/DL Aspartate Amino Transf 13 U/L (AST/SGOT) Alanine Aminotransferase 14 U/L (ALT/SGPT) Alkaline Phosphatase 56 U/L Total Protein 5.9 GM/DL Albumin 3.1 GM/DL White Blood Count 9.8 TH/MM3 Red Blood Count 3.73 MIL/MM3 Hemoglobin 10.5 GM/DL Hematocrit 31.7 % Mean Corpuscular Volume 85.0 FL Mean Corpuscular Hemoglobin 28.1 PG Mean Corpuscular Hemoglobin 33.1 % Concent Red Cell Distribution Width 13.8 % Platelet Count 246 TH/MM3 Mean Platelet Volume 7.4 FL Objective Remarks GENERAL: Well-developed patient, in no apparent distress. SKIN: No rash. Warm and dry. HEENT: Atraumatic. Normocephalic. NECK: Trachea midline. No JVD or lymphadenopathy. Supple, nontender, no meningeal signs. CARDIOVASCULAR: Regular rate and rhythm. No murmur appreciated. RESPIRATORY: Clear to auscultation. Breath sounds equal bilaterally. No wheezes , rales, or rhonchi. GASTROINTESTINAL: Abdomen soft, non-tender, nondistended. No guarding. MUSCULOSKELETAL: Left hip area dressed. NEUROLOGICAL: Awake and alert. no focal deficits. Medications and IVs Current Medications Medications (Trade) Dose Ordered Sig/Abhishek Route Start Time Stop Time Status Last Admin (Betadine 7.5% Scrub) 1 applic ONCE TOPICAL 01/16/17 05:45 01/19/17 05:44 Chlorhexidine Gluconate 1 applic 1 applic ONCE TOPICAL 01/16/17 05:45 01/19/17 05:44 01/16/17 06:13 Lactated Ringer's 1,000 ml @ 30 mls/hr Q24H PRN IV 01/16/17 06:00 01/19/17 05:59 01/16/17 06:10 (NS 500 ml Inj) 500 ml @ 30 mls/hr [id number] PRN IV 01/16/17 06:00 01/19/17 05:59 (Cardizem Cd) 240 mg DAILY PO 01/16/17 09:00 01/18/17 07:28 (Apresoline) 100 mg TID PO 01/16/17 09:00 01/18/17 07:28 (Hydrodiuril) 25 mg DAILY PO 01/16/17 09:00 01/18/17 07:28 (Ditropan) 5 mg Q12HR PO 01/16/17 09:00 01/18/17 07:27 Pantoprazole Sodium 40 mg 40 mg DAILY PO 01/16/17 09:00 01/18/17 07:28 (NS 1000 ml Inj) 1,000 ml @ 100 mls/hr Q10H IV 01/16/17 07:00 01/17/17 02:07 (NS Flush) 2 ml UNSCH PRN IVF 01/16/17 07:00 (NS Flush) 2 ml BID IVF 01/16/17 09:00 01/18/17 07:33 (Lovenox Inj) 30 mg Q24H SQ 01/16/17 21:00 01/17/17 20:22 (Morphine Inj) 3 mg Q3H PRN IV PUSH 01/16/17 09:45 (Theragran M Tab) 1 tab BID PO 01/17/17 21:00 03/18/17 20:59 01/18/17 07:28 (Zofran Inj) 4 mg Q6H PRN IVP 01/16/17 07:00 (Colace) 100 mg BID PO 01/17/17 21:00 01/18/17 07:27 (Ambien) 5 mg HS PRN PO 01/16/17 07:00 (Dulcolax Supp) 10 mg DAILY PRN RECTAL 01/16/17 07:00 (Narcan Inj) 0.4 mg UNSCH PRN IV 01/16/17 07:00 (Benadryl Inj) 25 mg Q6H PRN IV 01/16/17 07:00 (Ultram) 50 mg Q6H PRN PO 01/17/17 15:00 01/18/17 05:50 (Dulcolax Ec) 10 mg BID PO 01/17/17 21:00 01/18/17 07:28 (Milk Of Magnesia Liq) 30 ml BID PO 01/17/17 21:00 01/18/17 07:28 (Miralax) 17 gm BID PO 01/17/17 21:00 01/18/17 07:29 (Prinivil) 20 mg BID PO 01/17/17 21:00 01/18/17 07:28 A/P Assessment and Plan Ms. Burger is a 76-year-old female patient who underwent a left total hip revision today by Dr. Duarte. Other medical history significant for hypertension , bradycardia requiring pacemaker, gastroesophageal reflux, and history of inflammatory bowel disease which are stable at this time. Hospitalist team has been consulted for medical management. Status post left hip revision - Post op day 0, 01/16/17 - Control pain, Morphone 3 mg q3h IV PRN pain >7. Mancelona 7.5/325 mg PO q4h PRN per pain scale. - Control nausea, Zofran 4 mg IV PRN - Constipation given Lactulose, Glycerine suppository and is needed Fleet enema for discharge. - Dressing changes and ambulation , Vancomycin and Clindamycin for Pre op prophylaxis was given. Hypertension, controlled medicines adjusted for discharge. Pacemaker - Continue Diltazem HCL 240 mg PO daily, hydralazine 100 mg PO TID, HCTZ 25 mg PO daily, Lisinopril 20 mg PO BID Overactive bladder, chronic: Continue Oxybutynin 5 mg PO q12hr. GERD/GI Prophylaxis: Continue at home Protonix 40 mg PO daily. DVT Prophylaxis: Lovenox 30 mg sq q 24hr. Okay to discharge as per Orthopedic Surgery and follow with PCP and Orthopedic Surgery Doctor Devan Duarte in two weeks. Discussed with Nurse, Patient, PT specialist and her in the room. Discharge Planning Discharge Home on [facility] Nikita Bruno MD Jan 18, 2017 09:13
[2017-01-18] MEDS ORDERED: SOD PHOSPHATE/SOD BIPHOSPHATE (ADULT) ENEMA 133ML RECTAL ONE (10:15)
[2017-01-18] MEDS ORDERED: GLYCERIN ADULT 2 GM SUPP RECTAL ONE (10:45)
[2017-01-18] MEDS ORDERED: LACTULOSE SYRUP 20 GM/30 ML CUP PO ONE (10:45)
[2017-01-18] MEDS ORDERED: LISI-515 PO (10:49)
[2017-01-18 11:41] VITALS: BP 108/56; PULSE 65; RESP 16; TEMP 96.5; O2SAT 98
[2017-01-18] MEDS ORDERED: TRAM50TA PO (14:56)
== END 2017-01-18 16:50 | disposition home health service (06) | DRG 468 ==
LOC: HSDI 01-16 05:19 → N06B 01-16 10:22
PROVIDERS: ADMIT Orthopaedic Surgery Sports Medicine; ATTEND Orthopaedic Surgery Sports Medicine
PROC: 0SPB09Z Removal of Liner from Left Hip Joint, Open Approach (ICD-10-PCS; 2017-01-16)
PROC: 0SUE09Z Supplement Left Hip Joint, Acetabular Surface with Liner, Open Approach (ICD-10-PCS; 2017-01-16)
PROC: 0SPB0JZ Removal of Synthetic Substitute from Left Hip Joint, Open Approach (ICD-10-PCS; 2017-01-16)
PROC: 0SRB02Z Replacement of Left Hip Joint with Metal on Polyethylene Synthetic Substitute, Open Approach (ICD-10-PCS; principal; 2017-01-16 06:49)
DX: T84.021A Dislocation of internal left hip prosthesis, initial encounter (principal); Z96.641 Presence of right artificial hip joint; I10 Essential (primary) hypertension; K21.9 Gastro-esophageal reflux disease without esophagitis; N32.81 Overactive bladder; K59.00 Constipation, unspecified; E78.5 Hyperlipidemia, unspecified; I25.2 Old myocardial infarction; Y83.8 Other surgical procedures as the cause of abnormal reaction of the patient, or of later complication, without mention of misadventure at the time of the procedure; Z88.0 Allergy status to penicillin; Z88.2 Allergy status to sulfonamides; Z88.5 Allergy status to narcotic agent; Z95.0 Presence of cardiac pacemaker; Z96.653 Presence of artificial knee joint, bilateral
CPT/HCPCS: 73502; 80053; 83735; 84100; 85027; 86850; 86900; 86901; 93005; 94150; C1776; C9290; J0131; J1100; J1580; J1650; J2250; J2270; J2370; J2405; J2710; J3010; J3370; J7030; J7050; J7120; L1830

== ENCOUNTER 2018-01-07 07:47 | Day surgery (SDC) | payer OTHER ==
--- NOTE | 2017-12-30 14:44 | MH ---
cc: Kapil Stafford MD DATE OF ADMISSION: 01/07/2018 HISTORY OF PRESENT ILLNESS: The patient is a 77-year-old white female, followed in our office by Dr. Bryon De Luna with a history of coronary artery disease, hyperlipidemia, hypertension, pacemaker implant, who is now admitted for pacemaker generator replacement. Her pacemaker battery was found to be nearing end of life on a routine check. Clinically, she has been doing well. She denies chest pain, shortness of breath, palpitations, dizziness, syncope, near-syncope. PAST MEDICAL HISTORY: 1. Coronary artery disease with questionable 20% left main stenosis on cardiac catheterization in 1998. 2. Hyperlipidemia. 3. Hypertension. 4. Biotronik pacemaker implant 2008. CARDIAC MEDICATIONS AT HOME: 1. Aspirin 325 mg daily. 2. Atorvastatin 40 mg at bedtime. 3. Diltiazem 240 mg daily. 4. Hydrochlorothiazide 25 mg daily. 5. Lisinopril 40 mg daily. ALLERGIES: PENICILLIN SIMVASTATIN. SULFA. FAMILY HISTORY: Noncontributory. SOCIAL HISTORY: The patient has never smoked cigarettes. She drinks occasional alcohol. REVIEW OF SYSTEMS: As in the History Of Present Illness, otherwise negative or noncontributory. PHYSICAL EXAMINATION: VITAL SIGNS: Her blood pressure is 148/84 with a pulse of 65, respirations 18. GENERAL: She is a well-developed, well-nourished white female, in no acute distress. HEENT/NECK: Jugular venous pressure is normal. Carotid pulses are 2+ bilaterally and without bruits. CHEST: Reveals clear lungs saini. CARDIAC: She has a regular rhythm and rate without S3, S4, or murmur. ABDOMEN: She has a soft, nontender abdomen. Bowel sounds are present. There is no definite hepatosplenomegaly. EXTREMITIES: Reveals no clubbing, cyanosis or edema. IMPRESSION: Pacemaker battery nearing end of life in this 77-year-old white female with a history of hypertension, hyperlipidemia, pacemaker implant, coronary artery disease. She has been recommended pacemaker generator replacement. The nature of this procedure and potential risks including infection have been outlined to the patient. She agrees to proceed. PLAN pacemaker generator replacement on 01/07/2018. MD RADHA Noble/JANES , 09:13 AM , 09:35 AM REINA
[~2018-01-07] VITALS: Ht 162.6 cm; Wt 72.1 kg
[~2018-01-07 07:47] MED LIST changes: -ASPI325T PO; +ASPI81CH6 CHEW; +CALC1TAB87 PO; +COQ-50CA2 PO; +DOCU1CAP66 PO; +ENOX30P SQ; +FLOR250C PO; +LISI-515 PO; -LISI40TA PO; -OXYB5TAB10 PO; +OXYB5TAB8 PO; -STOO100C PO; +TRAM50TA PO; -ZOFR4TAB3 SL
[2018-01-07 08:38] LABS: AUTOMATED NEUTROPHIL # 4.4 TH/MM3 (1.8-7.7); BASOPHIL # 0.1 TH/MM3 (0-0.2); BASOPHIL % 0.7 % (0.0-2.0); EOSINOPHIL # 0.1 TH/MM3 (0-0.4); EOSINOPHIL % 1.7 % (0.0-4.0); HEMATOCRIT 37.9 % (35.0-46.0); HEMOGLOBIN 12.6 GM/DL (11.6-15.3); LYMPH % 27.2 % (9.0-44.0); LYMPHOCYTE # 1.9 TH/MM3 (1.0-4.8); MEAN CELL VOLUME 85.4 FL (80.0-100.0); MEAN CORPUSCULAR HEMOGLOBIN 28.4 PG (27.0-34.0); MEAN CORPUSCULAR HGB CONC 33.3 % (32.0-36.0); MEAN PLATELET VOLUME 7.7 FL (7.0-11.0); MONO % 8.8 % (0.0-8.0); MONOCYTE # 0.6 TH/MM3 (0-0.9); NEUT % 61.6 % (16.0-70.0); PLATELET COUNT 242 TH/MM3 (150-450); RED BLOOD COUNT 4.44 MIL/MM3 (4.00-5.30); RED CELL DISTRIBUTION WIDTH 14.5 % (11.6-17.2); WHITE BLOOD COUNT 7.1 TH/MM3 (4.0-11.0)
[2018-01-07] MEDS ORDERED: ASPI-183 PO (08:38)
[2018-01-07] MEDS ORDERED: LISI40TA PO (08:38)
[2018-01-07 08:41] VITALS: BP 123/70; RESP 16; TEMP 99.1
[2018-01-07 08:50] LABS: PROTHROMBIN TIME - PATIENT 9.9 SEC (9.8-11.6)
[2018-01-07 09:02] LABS: BICARBONATE 24.9 MEQ/L (21.0-32.0); CALCIUM 9.1 MG/DL (8.5-10.1); CREATININE 1.7 MG/DL (0.50-1.00)
[2018-01-07] MEDS ORDERED: METOPROLOL TARTRATE 25 MG TAB PO PRN (09:15)
[2018-01-07] MEDS ORDERED: CHLORHEXIDINE GLUCONATE 2 % 1 PACK (2 CLOTHS) TOPICAL PRN (09:15)
[2018-01-07] MEDS ORDERED: POVIDONE IODINE 5% (ANTISEPSIS KIT) 4 APPLICATIONS EACH NARE PRN (09:15)
[2018-01-07] MEDS ORDERED: SODIUM CHLOR 0.9% 1000 ML INJ 1,000 ML IV SCH (09:15)
[2018-01-07] MEDS ORDERED: VANCOMYCIN 1 GM/200 ML PREMIX IV SCH (09:15)
[2018-01-07] MEDS ORDERED: LACTATED RINGER'S 1000 ML IV PRN (09:15)
[2018-01-07] MEDS ORDERED: INSULIN HUMAN REGULAR 1,000 UNITS/10 ML VIAL SQ PRN (09:15)
[2018-01-07] MEDS ORDERED: SODIUM CHLORID 0.9% 500 ML IV PRN (09:15)
[2018-01-07] MEDS ORDERED: LIDOCAINE HCL 2% 20 ML VIAL ONE (09:41)
[2018-01-07] MEDS ORDERED: LEVOFLOXACIN 500 MG PREMIX INJ 100 ML IV ONE (09:42)
[2018-01-07] MEDS ORDERED: VANCOMYCIN HCL 1000 MG VIAL ONE (09:42)
[2018-01-07] MEDS ORDERED: LEVA250T14 PO (10:33)
--- NOTE | 2018-01-07 10:40 | MP ---
cc: Kapil Stafofrd MD, Joshua A MD DATE OF OPERATION: 01/07/2018 PROCEDURE PERFORMED: Pacemaker generator replacement. OPERATIVE NOTES: The patient was brought to the operating suite in a fasting state after having signed informed consent. The left upper chest was prepped and draped as per policy and anesthetized with 1% lidocaine. A transverse incision was made over the preexisting generator using a PlasmaBlade. The generator was freed from the subcutaneous pocket. The atrial and ventricular leads were disconnected and reconnected to the new device, which is a Biotronik Edora device. The leads and the generator were placed back into the subcutaneous pocket, which was closed using 3-0 Vicryl interrupted stitches in 2 layers to close the subcutaneous tissue and then 4-0 Monocryl running stitch to close the subcuticular tissue. Overlapping Steri-Strips and a dressing were applied. Atrial and ventricular pacing parameters were found to be good, stable. CONCLUSIONS: Successful pacemaker generator replacement using a Biotronik Edora pacemaker generator. Kapil Stafford MD [facility]/JANES , 10:30 AM , 10:38 AM REINA
--- NOTE | 2018-01-07 10:41 | CATHPROC ---
[employer] HIS Report Study Information Study Number Admission Scheduled Start Study Start [id number] Jan 07 2018 7:47AM 01/07/2018 Jan 07 2018 9:19AM [place] Service Cardiac Pacer/ICD Admit Source Facility Department Other [facility] - Manager Nursing Physician and Clinical Staff Initial MD Stafford, Kapil Access Service Representative Amarilis Patterson RN Other Anesthesia, GUARD MANAGER Recorder Jeromy Shukla,RT(R) Scrub Juana Ronquillo RCIS Equipment Time Independent Living Instructor Description Size Mfg Part Number Used/Scraped PACEMAKER, ENDORA 8 DR-T PRO 10:18 BIOTRONIK DDDR [id number] Used MRI [id number] 09:50 [place] BLANKET,WARM AIR CCL * Used *[id number] 09:50 [place] SUTURE, STRIP PLUS 1/2" * Used *[id number] 09:50 MEDLINE PACER ADHESIVE, MASTISOL 2/3CC 2/3CC 0523-48 Used 09:50 MEDLINE PACER [place], LIMB * 2530 *[id number] Used [id number] 09:50 MEDLINE PACER PACK, PACER CUSTOM * Used *[id number] 09:50 MEDLINE PACER PEN, SKIN DUAL W/ RULER * Used *[id number] 09:58 Needle Sponge Count 1 111 Used 09:57 Needle Sponge Count 2 22 Used 09:57 Needle Sponge Count 2 2 Used 09:57 Needle Sponge Count 30 1 Used [id number] *[id number] SUTURE, 3-0 VICRYL [SH] ([id number]) SUTURE, 3-0 VICRYL [SH] ([id number]) SUTURE, 4-0 MONOCRYL [PS2] (Y496G) [facility] PAD, ELECTROSURGICAL 09:50 * [id number] *[id number] Used SURGICAL GROUNDING ORANGE [id number] 09:53 VITATRON [employer] PLASMABLADE, PEAD 3.0S * Used *[id number] 09:50 [employer] ESTHER. / * Used *[id number] Equipment Model, Serial, Lot Number and Expiration Data Description Model Number Serial Number Lot Number Expiration Date PACEMAKER, ENDORA 8 DR-T PRO [id number] 02-09-2019 MRI Medication Medication Total Dose (Bolus/Oral) Medication Total Dosage/Unit 2% XYLOCAINE 50 mL Medications (Bolus/Oral) Medication Time Given Dosage/Unit Administered By Reason 2% XYLOCAINE 01/07/2018 10:15:07 AM 50 mL Kapil Stafford 50 mL 2% XYLOCAINE given in lab by Kapil Stafford in Left Arm via Subcutaneous. Ordered by Kapil Stafford . left upper chest Medication (Drip) Medication Time Given Dosage/Unit Concentration/Unit Diluent (ml) Solution IV Solutions 01/07/2018 9:52:34 AM 0 mL (IV) 500 NaCl .9 IV Solutions given in lab by Anesthesia, GUARD MANAGER in Right Wrist via Peripheral IV. Pump/Drip Flow = 20 m l/hr using NaCl .9. Ordered by Kapil Stafford. IV Solutions 01/07/2018 9:52:50 AM 0 mL (IV) 500 NaCl .9 IV Solutions given in lab by Anesthesia, GUARD MANAGER in Left Antecubital via Peripheral IV. Pump/Drip Flow = 20 ml/hr using NaCl .9. Ordered by Kapil Stafford. LEVAQUIN 01/07/2018 10:06:33 AM 500 mL 500 mL LEVAQUIN given in lab by Anesthesia, GUARD MANAGER in Left Antecubital via Peripheral IV. Ordered by Kapil Blanc. VANCOMYCIN DRIP 01/07/2018 10:02:37 AM 1 g 1 g VANCOMYCIN DRIP given in lab by Anesthesia, GUARD MANAGER in Left Antecubital via Peripheral IV. Ordered b y Kapil Stafford. Initial Case Assessment Cardiovascular HR Rhythm NIBP Chest Pain 66 SR 123/70 0 Edema Present Skin color Skin None Normal Warm Dry Circulatory - Right Pulses Dorsalis Pedis 1 Scale (0,1,2,3,4,d) Circulatory - Left Pulses Dorsalis Pedis 1 Scale (0,1,2,3,4,d) Neurological State Oriented to time-place- Alert Moves all extremities person Respiration - General Respiration Rate SpO2 (%) (B/min) 18 100 Final Case Assessment Cardiovascular HR NIBP 60 100/54 Edema Present Skin color Skin None Normal Warm Dry Neurological State Lethargic Respiration - General SpO2 (%) 100 Comment: lma insert Chronological Log Time Study Chronological Log 9:30:00 Patient arrived via Bed. 9:30:55 Anesthesia at bedside. Assumes care of patient. SEE RECORDS FOR ALL MEDS AND VITALS DURING PROCEDURE 9:31:00 Verbal Stimulation=2 Physical Stimulation=2 Airway=2 Respiration=2 TOTAL=8. (0=absent, 1=li mited, 2=present) 9:47:30 Patient Name, D.O.B, / Armband Verified By R.N. 9:47:39 Anesthesia at bedside. Assumes care of patient. 9:50:30 Patient has been NPO for More than 6Hrs. 9:50:31 Skin Breakdown- none per patient 9:51:07 Patient Warmer Placed on the Table. 9:51:08 Disposable Defibrillator Pads Placed On Patient. 9:51:08 Jose Prominences Protected 9:51:12 A # 20 IV was noted in the Wrist (right). Grade = 0 9:51:31 A # 20 IV was noted in the Antecubital (left). Grade = 0 9:51:46 History and physical on the chart or being dictated. Assessment: Initial Case, HR=66 BPM, Rhythm=SR, NRII=187/70 mmhg, Chest Pain=0, Edema=None, Col or=Normal, Skin = Warm, Dry Right Pulses: Haile Ped=1 9:51:47 Left Pulses: Haile Ped=1 Neurological: State=Alert, Ox3, HODGES Respiration: Resp=18 B/min, ZbN5=188 % IV Solutions given in lab by Anesthesia, GUARD MANAGER in Right Wrist via Peripheral IV. Pump/Drip Flow = 20 ml/hr using NaCl 9:52:34 .9. Ordered by Kapil Stafford. IV Solutions given in lab by Anesthesia, GUARD MANAGER in Left Antecubital via Peripheral IV. Pump/Drip Flow = 20 ml/hr using 9:52:50 NaCl .9. Ordered by Kapil Stafford. 9:53:37 Table restraints applied according to hospital policy 9:53:38 Left Upper Chest Prepped Times Two. 3 min dry time 9:53:44 Bovie ground pad applied to: STOMACH 2% CHLORHEXIDINE GLUCONATE WASH AND NASAL SWIPE DONE PRIOR TO PROCEDURE. 9:53:50 First Sponge And Instrument Count Done by Juana Ronquillo RCIS. 9:53:52 Hypo's: 2, Sponges: 30, Bovie/scratch: 1 Sutures: 3, Blades: 2, Instruments: 26, Syveck Patches: ~SYVECK PATCH~ VERIFIED BY JEROMY Fajardo 10:00:01 Dr. Dodd is here to sign off on LMA insert. 10:02:37 1 g VANCOMYCIN DRIP given in lab by Anesthesia, GUARD MANAGER in Left Antecubital via Peripheral IV. Ordered by Kapil Stafford. 10:04:51 MD paged 10:05:16 MD arrived. 10:06:33 500 mL LEVAQUIN given in lab by Anesthesia, GUARD MANAGER in Left Antecubital via Peripheral IV. Ord ered by Kapil Stafford. 10:13:57 Bovie ground pad applied to:abdomen Time Out. Correct patient, procedure, procedure equipment, site and side verified with physicia n present. Time 10:14:46 concurred by MD, individual staff and GUARD MANAGER. Time Out #2 - Consents verified, patient in correct position, all results are labled and displa yed, safety precautions 10:14:57 taken, antibiotics administered. Time out concurred by MD, individual staff and GUARD MANAGER in procedu re 10:15:02 Case Start 50 mL 2% XYLOCAINE given in lab by Kapil Stafford in Left Arm via Subcutaneous. Ordered by Kapil Stafford. left upper 10:15:07 chest 10:15:35 Surgical Incision Made. (plasma blade) 10:15:47 A pocket was created at the L Upper Chest. 10:17:46 A device was explanted. 10:17:52 A PACEMAKER, ENDORA 8 DR-T PRO MRI DDDR was connected and placed in the pocket. Second Sponge And Instrument Count Done by Juana Ronquillo RCIS. 10:18:28 Hypo's: 2, Sponges: 30, Bovie/scratch: 1 Sutures: ~SUTURE~, Blades: 2, Instruments: ~INSTRU~, Syveck Patches: ~SYVECK PATCH~ and amarilis hesher 10:18:53 The pocket was closed. 10:18:56 Implant Procedure was performed. gen ch 10:19:09 A PPM Implant . (Dual) gen ch 10:26:23 briseyda is continuing to close the pocket The Final Sponge And Instrument Count Done by Juana Ronquillo RCIS. 10:28:21 Hypo's: 2, Sponges: 30, Bovie/scratch: 1 Sutures: 3, Blades: 2, Instruments: 26, Syveck Patches: 0 and amarilis hesher 10:30:11 Steri-strips and a sterile dressing applied to site. Assessment: Final Case, HR=60 BPM, HRZA=865/54 mmhg, Edema=None, Color=Normal, Skin = Warm, D ry 10:30:22 Neurological: State=Lethargic Respiration: YdH0=104 %, Comment=lma insert 10:32:50 Case End (Physician broke scrub) 10:33:15 Sterile dressing applied to site 10:33:17 No case complications noted. 10:33:32 PACU called. 10:39:41 Patient moved to stretcher End Study - Patient Disposition Complications Not selected
[2018-01-07] MEDS ORDERED: ACETAMINOPHEN 325 MG TAB PO PRN (10:45)
[2018-01-07] MEDS ORDERED: DO NOT ADM ANY ANTICOAGULANT DRUGS PRN (10:50)
[2018-01-07 11:00] VITALS: BP 121/60; PULSE 60; RESP 16; TEMP 97.5; O2SAT 97
[2018-01-07] MEDS ORDERED: ONDANSETRON HCL 4 MG/2 ML VIAL IV ONE (12:00)
[2018-01-07] MEDS ORDERED: LIDOCAINE HCL 1% PF 5 ML SYRINGE OTHER ONE (12:00)
[2018-01-07] MEDS ORDERED: ePHEDrine/NS 25 MG/5 ML SYRINGE IV ONE (12:00)
[2018-01-07] MEDS ORDERED: PROPOFOL 200 MG/20 ML AMP IV ONE (12:00)
[2018-01-07] MEDS ORDERED: DEXAMETHASONE SOD PHOS 4 MG/ML VIAL IV ONE (12:00)
--- NOTE | 2018-01-07 20:04 | EKG ---
Date Performed: 01/07/2018 Time Performed: 08:43:58 PTAGE: 77 years EKG: Ventricular pacing. Pacemaker rhythm - no further analysis When compared to previous trapauline g, ventricular pacing is new. Abnormal ECG PREVIOUS TRACING : 01/16/2017 06.19 DOCTOR: Bryon De Luna Interpretating Date/Time 01/07/2018 20:02:40
== END 2018-01-07 12:42 | disposition home or self-care (01) ==
LOC: HDOC 07:47 → HDIC 07:48 → HDOC 12:42
PROVIDERS: ATTEND Internal Medicine Cardiovascular Disease
DX: Z45.010 Encounter for checking and testing of cardiac pacemaker pulse generator [battery] (principal); I25.10 Atherosclerotic heart disease of native coronary artery without angina pectoris; E78.5 Hyperlipidemia, unspecified; I10 Essential (primary) hypertension; R79.1 Abnormal coagulation profile; Z79.82 Long term (current) use of aspirin
CPT/HCPCS: 00400; 33228; 80048; 85025; 85610; 85730; 93005; C1785; J1100; J1956; J2405; J3010; J3370

== ENCOUNTER 2018-01-09 14:53 | Observation (INO) ==
[2018-01-10] MEDS ORDERED: Naloxone Inj 0.4 MG/ML Vial IV.PUSH PRN (00:01)
[2018-01-10] MEDS ORDERED: Acetaminophen 325 MG Tablet PO PRN (00:01)
[2018-01-10] MEDS ORDERED: Bisacodyl 10 MG Supp RECTAL PRN (00:01)
[2018-01-10] MEDS ORDERED: Prochlorperazine 25 MG Supp RECTAL PRN (00:01)
[2018-01-10] MEDS ORDERED: Sodium Chloride 0.45 % Inj 1,000 ML IV.CONT SCH (01:00)
[2018-01-10 06:05] LABS: Baso % (Auto) 0.6 % (0.0-2.0); Eos # (Auto) 0.1 th/mm3 (0.0-0.4); Eos % (Auto) 1.5 % (0.0-4.0); Hematocrit 33.9 % (35.0-46.0); Hemoglobin 11.1 gm/dL (11.6-15.3); Lymph # (Auto) 1.4 th/mm3 (1.0-4.8); Lymph % (Auto) 17.6 % (9.0-44.0); Mean Corpuscular HGB Conc 32.7 % (32.0-36.0); Mean Corpuscular Hemoglobin 28.8 pg (27.0-34.0); Mean Corpuscular Volume 88.2 fL (80.0-100.0); Mean Platelet Volume 7.1 fL (7.0-11.0); Mono # (Auto) 0.4 th/mm3 (0.0-0.9); Mono % (Auto) 5.7 % (0.0-8.0); Neut # (Auto) 5.9 th/mm3 (1.8-7.7); Neut % (Auto) 74.6 % (16.0-70.0); Platelet Count 100 th/mm3 (150-450); Red Blood Count 3.84 mil/mm3 (4.00-5.30); Red Cell Distribution Width 13.8 % (11.6-17.2); White Blood Count 7.8 th/mm3 (4.0-11.0)
[2018-01-10 06:16] LABS: Potassium 3.7 meq/L (3.5-5.1)
[2018-01-10 06:20] LABS: Calcium 8.3 mg/dL (8.5-10.1)
[2018-01-10 06:21] LABS: Carbon Dioxide 25.2 meq/L (21.0-32.0)
[2018-01-10] MEDS ORDERED: dilTIAZem CD 240 MG Capsule PO SCH (09:00)
[2018-01-10] MEDS ORDERED: Senna/Docusate Sodium 8.6/50 MG Tablet PO SCH (09:00)
[2018-01-10] MEDS ORDERED: Aspirin 325 MG Tablet PO SCH (09:00)
[2018-01-10] MEDS ORDERED: Lactobacillus Acidophilus/L. Spores Tablet PO SCH (09:00)
--- NOTE | 2018-01-10 09:37 | P.PNIM ---
Subjective Interval history: Patient seen today in follow-up for abdominal pain. Resolved. Tolerating diet. Discharge plan discussed with patient Physical Exam Vital signs: Vital Signs 01/10/18 02:23 01/10/18 08:00 Temperature 97.0 F L 97.1 F L Pulse Rate 62 60 Respiratory Rate 16 16 Blood Pressure 109/57 L 105/58 L Pulse Oximetry 96 96 Intake & Output 01/09/18 01/10/18 01/10/18 18:59 06:59 18:59 Intake Total 360 / 360 Balance 360 / 360 Weight 71.2 kg 72.9 kg Intake: Oral 360 / 360 Other: # Voids 4 # Bowel Movements 0 Narrative: GENERAL: No complaint SKIN: Warm and dry. HEAD: Atraumatic. Normocephalic. EYES: Pupils equal and round. No scleral icterus. No injection or drainage. ENT: No nasal bleeding or discharge. Mucous membranes pink and moist. NECK: Trachea midline. No JVD. CARDIOVASCULAR: Regular rate and rhythm. RESPIRATORY: No accessory muscle use. Clear to auscultation. Breath sounds equal bilaterally. GASTROINTESTINAL: Abdomen soft, non-tender, nondistended. Hepatic and splenic margins not palpable. MUSCULOSKELETAL: Extremities without clubbing, cyanosis, or edema. No obvious deformities. NEUROLOGICAL: Awake and alert. No obvious cranial nerve deficits. Motor grossly within normal limits. Five out of 5 muscle strength in the arms and legs. Normal speech. PSYCHIATRIC: Appropriate mood and affect; insight and judgment normal. Results - Labs CBC & Chem 7: 01/10/18 05:40 01/10/18 05:40 Labs: Laboratory Results - last 24 hr 01/09/18 01/09/18 01/09/18 12:20 12:20 12:50 CBC w Diff WBC 11.9 H RBC 4.46 Hgb 13.0 Hct 38.7 MCV 86.8 MCH 29.2 MCHC 33.7 RDW 14.1 Plt Count 173 MPV 7.7 Neut % (Auto) 79.1 H Lymph % (Auto) 10.4 [place] % (Auto) 7.0 Eos % (Auto) 0.4 Baso % (Auto) 3.1 H Neut # (Auto) 9.5 H Lymph # (Auto) 1.2 [place] # (Auto) 0.8 Eos # (Auto) 0.0 Baso # (Auto) 0.4 H CBC Comment DIFF FINAL WBC Differential Sodium 140 Potassium 4.3 Chloride 110 H Carbon Dioxide 23.2 Anion Gap 7 BUN 52 H Creatinine 2.30 H Estimated GFR 21 L Random Glucose 108 H Lactic Acid 0.9 Calcium 8.7 Total Bilirubin 1.0 AST 19 ALT 19 Alkaline Phosphatase 59 Total Protein 6.1 L Albumin 2.9 L Lipase 83 01/10/18 01/10/18 05:40 05:40 CBC w Diff Auto diff final WBC 7.8 RBC 3.84 L Hgb 11.1 L Hct 33.9 L MCV 88.2 MCH 28.8 MCHC 32.7 RDW 13.8 Plt Count 100 L MPV 7.1 Neut % (Auto) 74.6 H Lymph % (Auto) 17.6 [place] % (Auto) 5.7 Eos % (Auto) 1.5 Baso % (Auto) 0.6 Neut # (Auto) 5.9 Lymph # (Auto) 1.4 [place] # (Auto) 0.4 Eos # (Auto) 0.1 Baso # (Auto) 0.0 CBC Comment WBC Differential . Sodium 142 Potassium 3.7 Chloride 109 H Carbon Dioxide 25.2 Anion Gap 8 BUN 45 H Creatinine 1.50 H Estimated GFR 34 L Random Glucose 88 Lactic Acid Calcium 8.3 L Total Bilirubin AST ALT Alkaline Phosphatase Total Protein Albumin Lipase Assessment and Plan - Assessment (1) Abdominal pain Code(s): R10.9 - Unspecified abdominal pain Status: Acute Plan: Abdominal pain resolved No diarrhea leukocytosis improved Discharge plans discussed with patient. Patient will continue with Alinia Vancomycin if needed for further episodes of diarrhea patient instructed to continue with stool samples with outpatient follow-up Discharge home Activity as tolerated Diet heart healthy
== END 2018-01-10 11:22 | disposition home or self-care (01) ==
LOC: UNDODISOB → PH3 14:53
PROVIDERS: ADMIT Hospitalist; ATTEND Hospitalist